=== PATIENT | female | born 1995 | race Caucasian/White ===

== ENCOUNTER 2024-02-15 18:38 | Inpatient (IN) | payer OTHER, SELFPAY ==
--- NOTE | 2024-02-15 | ECG_ITS ---
Test Reason : SOB Blood Pressure : / mmHG Vent. Rate : 106 BPM Atrial Rate : 106 BPM P-R Int : 122 ms QRS Dur : 074 ms QT Int : 310 ms P-R-T Axes : 058 030 021 degrees QTc Int : 411 ms Sinus tachycardia Otherwise normal ECG No previous ECGs available Referred By: Generic ED Physician Electronically Signed By:EDEN HAN
--- NOTE | ~2024-02-15 | XR_ITS ---
EXAMINATION: XR CHEST CLINICAL INFORMATION: Shortness of breath, chest pain COMPARISON: None available. TECHNIQUE: 2 views of the chest were obtained. FINDINGS: No significant abnormality is noted involving the heart, lungs, mediastinum, bony thorax or soft tissues. XR/XR chest 2V IMPRESSION: Unremarkable examination. Electronically signed by: Sadi Saldaña DO 02/15/2024 09:25 PM EDT RP
--- NOTE | ~2024-02-15 | CT_ITS ---
EXAMINATION: CT HEAD WITHOUT CONTRAST CLINICAL INFORMATION: Persistent headache COMPARISON: None available. TECHNIQUE: Contiguous axial imaging was performed from the skull base to vertex without intravenous administration of contrast. This CT examination was performed using dose optimization techniques as appropriate, variously including the following: *Automated exposure control *Adjustment of mA and/or kV according to patient size (this includes techniques or standardized protocols for targeted exams where dose is matched to indication/reason for exam; i.e. extremities or head) *Use of iterative reconstruction technique DLP: 635 mGy-cm FINDINGS: There is no evidence of acute intracranial hemorrhage or edematous large vessel territorial infarction. No abnormal mass effect or midline shift is seen. Shin to white matter differentiation is well preserved. No abnormal extra-axial fluid collections are identified. The ventricles are normal in size. No abnormal attenuation in the brain parenchyma. No acute calvarial fracture.. Mucosal thickening of bilateral maxillary, ethmoid, left sphenoid sinus. Mastoid air cells are well-aerated. CT/CT head/brain wo IV con IMPRESSION: No CT evidence of acute intracranial hemorrhage or edematous territorial infarction. Consider further evaluation with MRI if there is clinical concern for an occult process. Bilateral maxillary, ethmoid and left sphenoid sinus disease. Electronically signed by: Marv Adhikari MD 02/18/2024 04:20 PM EDT
[2024-02-15 19:31] VITALS: BP 126/75; PULSE 113; RESP 24; TEMP 37.2; O2SAT 93; BMI 36.7
[2024-02-15 20:40] LABS: Hematocrit 44.3 % (37.0-47.0); Hemoglobin 14.8 g/dl (12.0-16.0); Mean Corpuscular HGB Conc 33.4 g/dl (31.0-35.0); Mean Corpuscular Hemoglobin 28.5 pg (27.0-33.0); Mean Corpuscular Volume 85.4 fL (80.0-98.0); Mean Platelet Volume 9.7 fL (9.4-12.3); Platelet Count 276 X10*3/uL (160-400); Red Blood Count 5.19 X10*6/uL (4.20-5.50); Red Cell Distribution Width 14.4 % (11.0-16.0); White Blood Count 13.8 X10*3/uL (4.8-10.8)
[2024-02-15 20:49] LABS: D Dimer High Sensitivity 336 NG/ML
[2024-02-15 21:00] LABS: Influenza A PCR NEGATIVE (Negative); Influenza B PCR NEGATIVE (Negative); Resp Syncy Virus RNA Qual PCR NEGATIVE (Negative); SARS COV2 PCR INHOUSE NEGATIVE (Negative)
--- NOTE | 2024-02-15 21:12 | ED.SOB ---
HPI - SOB/Dyspnea General Chief Complaint: Dyspnea Stated Complaint: CP and SOB 1xday, flu sym 3xdays hx asthma,murmur Time Seen by Provider: 02/15/24 21:07 Source: patient Mode of arrival: ambulatory Limitations: no limitations History of Present Illness ED Provider: eliazar JUDGE Narrative: Patient's history of asthma been sick for last 3 days with nasal congestion and dry cough no calf pain no recent travel feels tight in the lung on arrival patient was wheezing saturating 91% at room air no other family member sick no fever no chills Related Data Allergies Allergy/AdvReac Type Severity Reaction Status Date / Time propylene glycol Allergy Shortness Verified 02/15/24 19:38 of Breath Review of Systems Review of Systems: Yes all other systems are reviewed and are negative PMFSH Past Medical History Medical History Asthma Social History Social History Smoked in Last 30 Days: No Use of substances other than those prescribed or required for medical reasons: No Advance Directives: No Advance Directives Information Provided: No Do you have a plan to hurt others: No Plan Physical Exam Vital Signs: Vital Signs: Last Vital Signs Temp 99.6 F 02/16/24 00:38 Pulse 122 H 02/16/24 00:38 Resp 20 02/16/24 00:38 BP 127/74 02/16/24 00:38 Pulse Ox 92 02/16/24 00:38 O2 Del Method Room Air 02/16/24 00:38 BMI result Body Mass Index 36.7 Appearance: Alert. Oriented X3. No acute distress. Eyes: No pallor or icterus ENT: Pharynx normal. Oral Mucosa moist Neck: Normal inspection. Neck supple. CVS: Normal heart rate and rhythm. Pulses normal. Respiratory: No respiratory distress. Equal air entry bilateral, bilateral diffuse wheezing Abdomen: Soft and nontender. Bowel sounds are present, Skin: Skin warm and dry. Normal skin color. Normal skin turgor. Extremities: No lower extremity edema. No calf tenderness Neuro: Oriented X 3. No motor deficit. Medications Administered Discontinued Medications Generic Name Dose Route Start Last Admin Trade Name Freq PRN Reason Stop Dose Admin Albuterol Sulfate 5 mg 02/15/24 22:49 02/15/24 23:09 Albuterol Sulfate (0.083%) 2.5 Mg/3 Ml Vial.Neb INHALE 02/15/24 22:50 5 mg ONCE ONE Administration Albuterol Sulfate 5 mg/ 0 mg 02/15/24 21:13 02/15/24 21:20 Albuterol/Ipratropium 3 ml INHALE 02/15/24 21:14 7.5 each ONCE ONE Administration Dexamethasone Sodium Phosphate 10 mg 02/15/24 21:16 02/15/24 21:36 Dexamethasone Sod Phosphate 10 Mg/Ml Vial IVPUSH 02/15/24 21:17 10 mg ONCE ONE Administration Magnesium Sulfate 2 gm in 50 mls @ 150 mls/hr 02/15/24 21:16 02/15/24 22:42 Magnesium Sulfate/H2o IV 02/15/24 21:35 Infused ONCE ONE Infusion Medical Decision Making Medical Decision Making [facility] Narrative: Patient with history of asthma came with acute exacerbation with wheezing saturating 91% patient does not have any nebulizer at home patient has received 2 continues nebulizing treatment along with IV steroids and magnesium still unable to take deep breath and coughing saturating 91% will admit patient for further management Differential Diagnosis Differential Diagnoses: The differential diagnosis associated with the presentation includes Asthma/bronchitis/viral pneumonia/pneumothorax/pneumonia Admission/Observation Consideration of admission/observation: Escalation of care including admission/observation considered Consult Healthcare Provider Management of the patient was discussed with: Hospitalist Lab Data [facility] Lab Attestation statement: I reviewed the patient's lab results. 02/15/24 20:36 02/15/24 21:05 Labs: Lab Results 02/15/24 02/15/24 02/15/24 Range/Units 20:04 20:36 21:05 WBC 13.8 H (4.8-10.8) X10*3/uL RBC 5.19 (4.20-5.50) X10*6/uL Hgb 14.8 (12.0-16.0) g/dl Hct 44.3 (37.0-47.0) % MCV 85.4 (80.0-98.0) fL MCH 28.5 (27.0-33.0) pg MCHC 33.4 (31.0-35.0) g/dl RDW 14.4 (11.0-16.0) % Plt Count 276 (160-400) X10*3/uL MPV 9.7 (9.4-12.3) fL Absolute Nucleated RBC 0.000 (0.0-0.012) X10*3/uL Nucleated RBC % (auto) 0.0 (0.0-0.2) /100WBC D-Dimer High Sensitivty 336 NG/ML Sodium 140 (135-145) mmol/L Potassium 3.5 (3.3-5.1) mmol/L Chloride 107 (96-108) mmol/L Carbon Dioxide 24 (22-29) mmol/L Anion Gap 13 (12-20) BUN 9 (9-16) mg/dL Creatinine 0.73 (0.5-1.4) mg/dL Estim Creat Clear Calc 107.5 Estimated GFR > 60 Random Glucose 89 (60-115) mg/dL Calcium 9.3 (8.4-10.2) mg/dL Troponin I High Sens < 2.7 (<3.5-17.0) ng/L Beta HCG, Quant < 2 mIU/mL Influenza Type A (PCR) NEGATIVE (Negative) Influenza Type B (PCR) NEGATIVE (Negative) RSV RNA Qual (PCR) NEGATIVE (Negative) SARS-CoV-2 RNA (RT-PCR) NEGATIVE (Negative) Independent Interpretation I performed an independent interpretation of an: Plain X-Ray Interpretation: neg Radiology Impression Discussion of test interpretation with radiology: I have reviewed the radiologist's reading. Critical Care Time Critical Care Time Critical Care Time: Yes Total Critical Care Time: 50 Attestation: The patient was critically ill with a high probability of imminent or life threatening deterioration. I spent greater than 60???minutes of discontinuous time evaluating the patient,delivering critical care at the bedside, discussing and evaluating pertinent data with consultants. Critical care time does not include time spent performing separately billable procedures or teaching. Total time spent performing critical care was 50???minutes. Discharge Plan Discharge Clinical Impression: Asthma with exacerbation Patient Disposition: Admitted As Inpatient
[2024-02-15] MEDS: Albuterol Sulfate 5 MG, Albuterol/Iprat 2.5/0.5MG 3 ML 3 ML INHALE (21:20)
[2024-02-15 21:21] VITALS: PULSE 126; RESP 20; O2SAT 91
[2024-02-15 21:24] LABS: Anion Gap 13 (12-20); Blood Urea Nitrogen 9 mg/dL (9-16); Calcium 9.3 mg/dL (8.4-10.2); Carbon Dioxide 24 mmol/L (22-29); Chloride 107 mmol/L (96-108); Creatinine Clr Calc Pharmacy 107.5; Estimated Glomerular Filt Rate > 60; Glucose Random 89 mg/dL (60-115); Potassium 3.5 mmol/L (3.3-5.1); Sodium 140 mmol/L (135-145)
[2024-02-15 21:34] LABS: Troponin-I High Sensitivity < 2.7 ng/L (<3.5-17.0)
[2024-02-15] MEDS: Magnesium Sulfate/H2O 2 GM/50 ML PIGGYBACK IV (21:35)
[2024-02-15] MEDS: dexAMETHasone sod phosphate 10 MG/ML VIAL IVPUSH (21:36)
[2024-02-15 23:07] VITALS: BP 112/64; PULSE 120; RESP 22; TEMP 37.3; O2SAT 91
[2024-02-15 23:09] VITALS: PULSE 123; RESP 20; O2SAT 92
[2024-02-15] MEDS: Albuterol Sulfate (0.083%) 2.5 MG/3 ML VIAL.NEB 5 MG INHALE (23:09)
[2024-02-16] VITALS (14 sets, daily range): BP systolic 118–152; BP diastolic 61–83; PULSE 72–122; RESP 14–24; TEMP 36.3–37.6; O2SAT 92–100; BMI 35.6
[2024-02-16 00:37] LABS: HCG Quantitative < 2 mIU/mL
--- NOTE | 2024-02-16 00:39 | PM.IMHP ---
History of Present Illness Date of Service: 02/16/24 Chief Complaint: Dyspnea This is a 28-year-old female with pertinent history of asthma not on home oxygen, eczema who presents to the emergency department for evaluation of dyspnea. Patient states his symptoms started 1 day prior to presentation. She has been having dyspnea which is worse with exertion. Also has been having wheezing which is not relieved with home inhaler. Has associated cough. She was last hospitalized for asthma as a kid. No history of intubation. No fever, chills, chest discomfort, palpitations, abdominal pain, changes in urinary or bowel habits. In the emergency department, patient with wheezing despite multiple DuoNeb treatments. IV magnesium and IV steroids given in the ER. Review of Systems Cardiovascular: Cardiovascular: Reports dyspnea on exertion Respiratory: Respiratory: Reports cough, Reports dyspnea on exertion and Reports wheezing Gastrointestinal: Gastrointestinal: Reports no additional gastrointestinal complaints Genitourinary: Genitourinary: Reports no additional female genitourinary complaints Allergic/Immunologic: Allergic/Immunologic: Reports wheezing [facility] Medical History Asthma Pertinent family history: No family history of early CAD Social History Smoked in Last 30 Days: No Use of substances other than those prescribed or required for medical reasons: No Advance Directives: No Advance Directives Information Provided: No Do you have a plan to hurt others: No Plan Meds Allergies Allergy/AdvReac Type Severity Reaction Status Date / Time propylene glycol Allergy Shortness Verified 02/15/24 19:38 of Breath Physical Exam Vital Signs and Narrative: Vital Signs: Last Vital Signs Temp 99.1 F 02/15/24 23:07 Pulse 123 H 02/15/24 23:09 Resp 20 02/15/24 23:09 BP 112/64 02/15/24 23:07 Pulse Ox 91 L 02/15/24 23:07 O2 Del Method Room Air 02/15/24 23:07 BMI result Body Mass Index 36.7 Young female lying in bed in no distress Neck supple, no JVD Tachycardic with regular rhythm, S1-S2 heard Bilateral wheezing without crackles Abdomen soft nontender, no guarding, no rigidity Patient is awake, alert and oriented to self, place, time and person ; no focal motor deficit Psych: Normal mood No pedal edema Results Labs 02/15/24 20:36 02/15/24 21:05 Labs: Laboratory Results - last 24 hr 02/15/24 02/15/24 02/15/24 20:04 20:36 21:05 MCV 85.4 MCH 28.5 MCHC 33.4 RDW 14.4 Plt Count 276 MPV 9.7 Absolute Nucleated RBC 0.000 Nucleated RBC % (auto) 0.0 D-Dimer High Sensitivty 336 Anion Gap 13 Estim Creat Clear Calc 107.5 Estimated GFR > 60 Random Glucose 89 Calcium 9.3 Troponin I High Sens < 2.7 Beta HCG, Quant < 2 Influenza Type A (PCR) NEGATIVE Influenza Type B (PCR) NEGATIVE RSV RNA Qual (PCR) NEGATIVE SARS-CoV-2 RNA (RT-PCR) NEGATIVE Imaging Radiologist's Impressions: Impressions Chest X-Ray 02/15/24 20:15 IMPRESSION: Unremarkable examination. Electronically signed by: Sadi Saldaña DO 02/15/2024 09:25 PM EDT RP Assessment and Plan (1) Asthma exacerbation: Status: Acute Plan This is a 28-year-old female with pertinent history of asthma not on home oxygen who presents to the emergency department for evaluation of dyspnea. #. Acute respiratory distress due to acute exacerbation of asthma: Will admit patient with scheduled and p.r.n. DuoNebs. Initiating systemic steroids. Continue home inhaler Med rec pending DVT prophylaxis: None. Low risk and patient is ambulatory Full code Quality Stroke Does the patient have a stroke diagnosis?: No VTE Prior VTE?: No VTE Risk Level:: Medical - moderate - high VTE Device Contraindication: Treatment Not Indicated VTE Drug Contraindication: N/A - Med Ordered
--- NOTE | 2024-02-16 04:36 | PC.NURSE ---
pt placed on 2L nasal cannula d/t O2 dropping to 88% room air
[2024-02-16 05:12] LABS: Basophils Percent Auto 0.1 % (0-2); Hematocrit 41.5 % (37.0-47.0); Hemoglobin 13.7 g/dl (12.0-16.0); Imm Gran Abs Auto 0.03 X10*3/uL (0.00-0.03); Imm Gran Pct Auto 0.3 % (0.0-0.4); Lymphocytes Absolute Auto 0.6 X10*3/uL (1.2-4.9); Lymphocytes Percent Auto 6.3 % (20-40); MANUAL DIFF FLAG SCAN; Mean Corpuscular Hemoglobin 28.1 pg (27.0-33.0); Mean Platelet Volume 9.9 fL (9.4-12.3); Monocytes Absolute Auto 0.1 X10*3/uL (0.1-1.2); Monocytes Percent Auto 0.8 % (2-11); Neutrophils Absolute Auto 8.6 x10*3/uL (2.0-8.3); Neutrophils Percent Auto 92.5 % (45-73); Platelet Count 302 X10*3/uL (160-400); Red Blood Count 4.88 X10*6/uL (4.20-5.50); Red Cell Distribution Width 14.3 % (11.0-16.0); SCAN SMEAR FLAG 1; White Blood Count 9.3 X10*3/uL (4.8-10.8)
[2024-02-16 05:27] LABS: Anion Gap 17 (12-20); Blood Urea Nitrogen 9 mg/dL (9-16); Calcium 9.3 mg/dL (8.4-10.2); Carbon Dioxide 20 mmol/L (22-29); Chloride 106 mmol/L (96-108); Creatinine Clr Calc Pharmacy 107.5; Estimated Glomerular Filt Rate > 60; Glucose Random 157 mg/dL (60-115); Sodium 139 mmol/L (135-145)
[2024-02-16 05:34] LABS: SLIDE REVIEW VERIFIED
[2024-02-16] MEDS: Albuterol/Iprat 2.5/0.5MG 3 ML AMPUL.NEB INHALE ×5 (07:45→22:45)
[2024-02-16] MEDS: predniSONE 20 MG TABLET 40 MG PO (09:17)
[2024-02-16] MEDS: 0.9 % Sodium Chloride Flush 3 ML SYRINGE IVFLUSH ×2 (09:18→16:31)
--- NOTE | 2024-02-16 09:55 | PHA.MEDREC ---
Addendum entered by Fide Terrell RPh 02/16/24 10:08: Reviewed by Sheila Original Note: Pharmacy Consult ? Medication Reconciliation Pharmacy has completed the medication reconciliation. Confirmed medications with patient. Patient states she only takes an Albuterol Inhaler 2 puffs every 4 hours as needed and a Dupixent Pen 300mg injected every 2 weeks and she states she does it every other Thursday confirmed she took it this past Tuesday 02/13. She states she is not on anything else and she confirmed she fills her scripts at [facility] on [facility] in [place].
--- NOTE | 2024-02-16 11:50 | ECG_ITS ---
Test Reason : cp Blood Pressure : / mmHG Vent. Rate : 078 BPM Atrial Rate : 078 BPM P-R Int : 126 ms QRS Dur : 072 ms QT Int : 356 ms P-R-T Axes : 042 014 -01 degrees QTc Int : 405 ms Normal sinus rhythm with sinus arrhythmia Normal ECG When compared with ECG of 15-FEB-2024 19:44, Heart rate has decreased Referred By: Chaitanya Humphries Electronically Signed By:EDEN HAN
--- NOTE | 2024-02-16 11:50 | PC.NURSE ---
Pt continues to endorse chest discomfort, MD Franco made aware. Repeat EKG ordered.
--- NOTE | 2024-02-16 12:35 | MHC.CM.PN ---
PT LIVES WITH S/O HAS OWN RIDE TANESHAROSSI IS INDEPENDENT DC PLAN HOME NO SERV IES
--- NOTE | 2024-02-16 13:07 | PM.EVENT ---
Documented by User: Anju Gardiner PA-C 02/16/24 13:09 Event Note Date of Service: 02/16/24 Event Note: pt c/o CP with inspiration worse with cough unable to speak without coughing. EKG normal orders for robatussin with codiene and ibuprofen added Time Spent With Patient Time: Total time managing care of this patient today 5 minutes. Documented by User: Chaitanya Franco MD 02/16/24 15:51 Event Note Date of Service: 02/16/24
--- NOTE | 2024-02-16 14:14 | PC.NURSE ---
Respiratory called and reminded about pt's scheduled neb treatments, reported they will be down shortly.
[2024-02-16 15:32] LABS: ABG Base Excess 0.3 mmol/L; ABG HCO3 23 mmol/L (22-26); ABG pCO2 31 mmHg (32-45); ABG pH 7.47 (7.35-7.45); ABG pO2 76 mmHg (83-108)
--- NOTE | 2024-02-16 15:51 | PM.EVENT ---
Event Note Date of Service: 02/16/24 Event Note: pt seen/examine with PA. appear anxious, O2 sat normal on room air. Has bilateral wheezes, no accessory muscle use. ABG c/w hyperventilation. Change steroid to IV, continue breahing treatement. Ativan for anxiety. Weight loss advised Time Spent With Patient Time: Total time managing care of this patient today ____ minutes.
[2024-02-16] MEDS: methylPREDNISolone Sod Succ 40 MG/ML VIAL IVPUSH ×2 (16:31→23:52)
--- NOTE | 2024-02-16 17:36 | PC.NURSE ---
Pt has $1,214 dollars with her in [place]. Pt counted with this RN.
[2024-02-16] MEDS: LORazepam 2 MG/ML VIAL 0.5 MG IVPUSH (19:32)
[2024-02-16 20:13] LABS: ABG Refer to POC result
[2024-02-16] MEDS: guaiFEN/Codeine SF 200/20/10ML 10 ML LIQUID PO (23:52)
[2024-02-16] MEDS: Ibuprofen 600 MG TABLET PO (23:52)
[2024-02-17] VITALS (13 sets, daily range): BP systolic 110–130; BP diastolic 58–85; PULSE 95–142; RESP 17–20; TEMP 36.3–37.1; O2SAT 94–98
--- NOTE | 2024-02-17 | ECG_ITS ---
Test Reason : Tachycardia Blood Pressure : / mmHG Vent. Rate : 137 BPM Atrial Rate : 137 BPM P-R Int : 116 ms QRS Dur : 072 ms QT Int : 290 ms P-R-T Axes : 056 014 -04 degrees QTc Int : 437 ms Sinus tachycardia Cannot rule out Anterior infarct , age undetermined Abnormal ECG When compared with ECG of 16-FEB-2024 12:06, Vent. rate has increased BY 59 BPM Minimal criteria for Anterior infarct are now Present Nonspecific T wave abnormality now evident in Anterior leads Referred By: Kareem Oden Electronically Signed By:EDEN HAN
[2024-02-17] MEDS: 0.9 % Sodium Chloride Flush 3 ML SYRINGE IVFLUSH ×4 (00:32→19:44)
[2024-02-17] MEDS: LORazepam 2 MG/ML VIAL 0.5 MG IVPUSH ×2 (01:21→07:42)
[2024-02-17] MEDS: levalbuterol HCL 1.25 MG/3 ML VIAL.NEB INHALE ×2 (01:49→20:15)
[2024-02-17] MEDS: Magnesium Sulfate/H2O 2 GM/50 ML PIGGYBACK IV ×2 (02:01→19:51)
[2024-02-17] MEDS: methylPREDNISolone Sod Succ 40 MG/ML VIAL IVPUSH (07:42)
[2024-02-17] MEDS: Albuterol/Iprat 2.5/0.5MG 3 ML AMPUL.NEB INHALE ×4 (08:27→18:51)
[2024-02-17 09:10] LABS: Hematocrit 38.1 % (37.0-47.0); Hemoglobin 12.7 g/dl (12.0-16.0); Mean Corpuscular HGB Conc 33.3 g/dl (31.0-35.0); Mean Corpuscular Hemoglobin 28.2 pg (27.0-33.0); Mean Corpuscular Volume 84.7 fL (80.0-98.0); Platelet Count 319 X10*3/uL (160-400); Red Cell Distribution Width 14.7 % (11.0-16.0); White Blood Count 16.9 X10*3/uL (4.8-10.8)
[2024-02-17 09:36] LABS: Anion Gap 13 (12-20); Blood Urea Nitrogen 14 mg/dL (9-16); Calcium 8.7 mg/dL (8.4-10.2); Carbon Dioxide 23 mmol/L (22-29); Chloride 108 mmol/L (96-108); Creatinine Clr Calc Pharmacy 104.3; Estimated Glomerular Filt Rate > 60; Glucose Random 163 mg/dL (60-115); Potassium 3.9 mmol/L (3.3-5.1); Sodium 140 mmol/L (135-145)
--- NOTE | 2024-02-17 12:03 | MHC.CM.PN ---
Per MD rounds patient may be ready to discharge today. DP Home self care. Patient will arrange for transport home.
--- NOTE | 2024-02-17 12:18 | HO.PM.IMPN ---
Subjective Subjective Date of Service: 02/17/24 Interval History: Being followed for acute asthma exacerbation Complaining of persistent shortness of breath,dry cough and allergy symptoms Denies fever, no chills, no nausea, no vomiting or abdominal pain, oxygenation stable on 2 L Review of Systems All other system reviewed and are negative Physical Exam Vital Signs: Vital Signs: Last Vital Signs Temp 98.3 F 02/17/24 11:30 Pulse 95 02/17/24 11:47 Resp 18 02/17/24 11:47 BP 123/72 02/17/24 11:30 Pulse Ox 96 02/17/24 11:30 O2 Del Method Nasal Cannula 02/17/24 11:30 O2 Flow Rate 2 02/17/24 11:30 BMI result Body Mass Index 35.6 Const: Other: General in no acute distress. Neck no JVD. CVS regular rate rhythm, Respiratory lungs bilateral expiratory wheeze Gastrointestinal abdomen soft, non tender, bowel sounds audible Extremities no edema. Neuro non focal Skin no rash Appropriate affect Objective Data Active Medications Acetaminophen (Acetaminophen 325 Mg Tablet) 650 mg PO Q6H PRN PRN Reason: Pain, Mild (Pain Scale 1-3), fever or headache Albuterol/Ipratropium (Albuterol/Iprat 2.5/0.5mg 3 Ml Ampul.Neb) 3 ml INHALE RQ4H WHILE AWAKE [facility] Last Admin: 02/17/24 11:47 Dose: 3 ml Documented By: CAPRI Albuterol/Ipratropium (Albuterol/Iprat 2.5/0.5mg 3 Ml Ampul.Neb) 3 ml INHALE Q4H PRN PRN Reason: Wheezing Last Admin: 02/16/24 22:45 Dose: 3 ml Documented By: DAVID Calcium Carbonate (Calcium Carbonate 750 Mg Tab.Chew) 750 mg PO Q4H PRN PRN Reason: Heartburn Guaifenesin/Codeine Phosphate (Guaifen/Codeine Sf 200/20/10ml 10 Ml Liquid) 10 ml PO Q6H PRN PRN Reason: Cough Last Admin: 02/16/24 23:52 Dose: 10 ml Documented By: GONZALO Guaifenesin/Dextromethorphan (Guaifenesin Dm 200/20/10 Ml 10 Ml Syrup) 10 ml PO TID [facility] Ibuprofen (Ibuprofen 600 Mg Tablet) 600 mg PO Q6H PRN PRN Reason: Pain, Moderate(Pain Scale 4-6) Last Admin: 02/16/24 23:52 Dose: 600 mg Documented By: GONZALO Loratadine (Loratadine 10 Mg Tablet) 10 mg PO DAILY [facility] Lorazepam (Lorazepam 2 Mg/Ml Vial) 0.5 mg IVPUSH Q8H PRN PRN Reason: Anxiety Magnesium Hydroxide (Milk Of Magnesia 30 Ml Oral.Susp) 30 ml PO DAILY PRN PRN Reason: Constipation Melatonin (Melatonin 3 Mg Tablet) 6 mg PO BEDTIME PRN PRN Reason: Insomnia Methylprednisolone Sodium Succinate (Methylprednisolone Sod Succ 40 Mg/Ml Vial) 40 mg IVPUSH Q8H [facility] Last Admin: 02/17/24 07:42 Dose: 40 mg Documented By: KARLY Montelukast Sodium (Montelukast Sodium 10 Mg Tablet) 10 mg PO ONCE ONE Stop: 02/17/24 12:16 Ondansetron HCl (Ondansetron Hcl 4 Mg/2 Ml Vial) 4 mg IVPUSH Q8H PRN PRN Reason: Nausea and Vomiting Sodium Chloride (0.9 % Sodium Chloride Flush 3 Ml Syringe) 3 ml IVFLUSH QSHIFT [facility] Last Admin: 02/17/24 07:43 Dose: 3 ml Documented By: KARLY Labs 02/17/24 08:32 02/17/24 08:32 Labs: Laboratory Results - last 24 hr 02/16/24 02/17/24 15:21 08:32 MCV 84.7 MCH 28.2 MCHC 33.3 RDW 14.7 Plt Count 319 MPV 10.0 Absolute Nucleated RBC 0.000 Nucleated RBC % (auto) 0.0 O2 Saturation 95.0 ABG pH at Pt Temp 7.47 H ABG pCO2 at Pt Temp 31 L ABG pO2 at Pt Temp 76 L ABG HCO3 23 ABG Base Excess (Actual) 0.3 Anion Gap 13 Estim Creat Clear Calc 104.3 Estimated GFR > 60 Random Glucose 163 H Calcium 8.7 D Assessment and Plan (1) Asthma with exacerbation: Status: Acute Plan 28-year-old female with pertinent history of asthma not on home oxygen who presents to the emergency department for evaluation of dyspnea. #. Acute respiratory distress due to acute exacerbation of asthma: Persistent shortness of breath dry cough, chest x-ray unremarkable Continue IV steroids increased to 60mg Q 8 hours, continue scheduled and p.r.n. DuoNebs. Add scheduled cough medication, Claritin and Singulair. # history of allergies on dupilumab Q 14 days subQ/cont. outpt. Follow-up with post doctoral researcher. # class 2 obesity recommend low-calorie diet DVT prophylaxis: Low risk and patient is ambulatory Full code In my clinical judgment patient requires continued inpatient hospitalization for management of acute asthma exacerbation requiring IV steroids and scheduled DuoNeb and close respiratory monitoring Quality Stroke Does the patient have a stroke diagnosis?: No VTE Prior VTE?: No VTE Risk Level:: Medical - moderate - high VTE Device Contraindication: Treatment Not Indicated VTE Drug Contraindication: N/A - Med Ordered
--- NOTE | 2024-02-17 13:05 | MHC.CM.PN ---
Per no dc today. Patient requires IV steroids for Asthma exacerbation as well as respiratory monitoring. DP Home no services patient will arrange transport.
[2024-02-17] MEDS: Loratadine 10 MG TABLET PO (13:15)
[2024-02-17] MEDS: Montelukast Sodium 10 MG TABLET PO (13:15)
[2024-02-17] MEDS: methylPREDNISolone Sod Succ 40 MG/ML VIAL 60 MG IVPUSH ×2 (14:38→19:45)
[2024-02-17] MEDS: guaiFENesin DM 200/20/10 ML 10 ML SYRUP PO ×2 (15:06→19:48)
[2024-02-17] MEDS: 0.9 % Sodium Chloride 1,000 ML 999 ML IV (19:44)
[2024-02-17] MEDS: ondansetron HCL 4 MG/2 ML VIAL IVPUSH (21:11)
[2024-02-17 22:15] LABS: Alanine Aminotransferase 11 U/L (0-31); Albumin Level 3.9 g/dL (3.5-5.0); Alkaline Phosphatase 55 U/L (39-117); Aspartate Amino Transferase 14 U/L (5-31); Bilirubin Direct 0.1 mg/dL (0.0-0.5); Bilirubin Total 0.3 mg/dL (0.0-1.0)
[2024-02-18] VITALS (11 sets, daily range): BP systolic 121–133; BP diastolic 62–79; PULSE 63–128; RESP 16–22; TEMP 36.4–36.9; O2SAT 96–99
--- NOTE | 2024-02-18 04:27 | PC.NURSE ---
This RN was alerted at the beginning of her shift by the [employer] that pt's HR was in the 150's. This RN in to assess pt; alerted MD. See new orders from MD. Pt vomited, zofran administered. Pt insisting she was told she would received a ct scan when she was in the ED. MD aware pt would like a ct scan. Pt placed on tele. She went from sinus tach to sinus rhythm, HR has been in the 80's. Pt was on 2L O2, she requested to remove it, educated pt about O2 use and she may need to have it placed on her again if needed; pt agreeable. She is independent in the room, able to make her needs known. Call thompson within reach.
[2024-02-18] MEDS: methylPREDNISolone Sod Succ 40 MG/ML VIAL 60 MG IVPUSH ×3 (05:16→19:53)
[2024-02-18] MEDS: Albuterol/Iprat 2.5/0.5MG 3 ML AMPUL.NEB INHALE ×4 (07:27→20:14)
[2024-02-18] MEDS: Ibuprofen 600 MG TABLET PO ×3 (10:46→19:53)
[2024-02-18] MEDS: Benzonatate 100 MG CAPSULE PO (10:48)
[2024-02-18] MEDS: Doxycycline Hyclate 100 MG in 0.9 % Sodium Chloride 250 ML 166.67 MG IV ×2 (10:59→20:01)
[2024-02-18] MEDS: 0.9 % Sodium Chloride Flush 3 ML SYRINGE IVFLUSH ×2 (11:06→19:56)
[2024-02-18] MEDS: Loratadine 10 MG TABLET PO (11:06)
--- NOTE | 2024-02-18 11:49 | HO.PM.IMPN ---
Subjective Subjective Date of Service: 02/18/24 Interval History: Being followed for acute asthma exacerbation. Complaining of Persistent shortness of breath and dry cough, complaining of chest wall pain with coughing and breathing, denies fever chills, tolerating diet, stable oxygenation. Review of Systems All other system reviewed and are negative. Physical Exam Vital Signs: Vital Signs: Last Vital Signs Temp 98.5 F 02/18/24 11:30 Pulse 63 02/18/24 11:30 Resp 22 H 02/18/24 11:30 BP 133/69 02/18/24 11:30 Pulse Ox 99 02/18/24 11:30 O2 Del Method Room Air 02/18/24 11:30 O2 Flow Rate 2 02/17/24 19:03 BMI result Body Mass Index 35.6 Const: Other: General in no acute distress. Neck no JVD. CVS regular rate rhythm, Respiratory lungs bilateral diffuse expiratory wheeze Gastrointestinal abdomen soft, non tender, bowel sounds audible Extremities no edema. Neuro non focal Skin no rash Appropriate affect Objective Data Active Medications Acetaminophen (Acetaminophen 325 Mg Tablet) 650 mg PO Q6H PRN PRN Reason: Pain, Mild (Pain Scale 1-3), fever or headache Albuterol/Ipratropium (Albuterol/Iprat 2.5/0.5mg 3 Ml Ampul.Neb) 3 ml INHALE RQ4H WHILE AWAKE [facility] Last Admin: 02/18/24 11:24 Dose: 3 ml Documented By: MELISSA Albuterol/Ipratropium (Albuterol/Iprat 2.5/0.5mg 3 Ml Ampul.Neb) 3 ml INHALE Q4H PRN PRN Reason: Wheezing Last Admin: 02/16/24 22:45 Dose: 3 ml Documented By: DAVID Benzonatate (Benzonatate 100 Mg Capsule) 100 mg PO TID PRN PRN Reason: Cough Last Admin: 02/18/24 10:48 Dose: 100 mg Documented By: BRUCE Calcium Carbonate (Calcium Carbonate 750 Mg Tab.Chew) 750 mg PO Q4H PRN PRN Reason: Heartburn Doxycycline Hyclate 100 mg/ (Sodium Chloride) 250 mls @ 166.67 mls/hr IV Q12H [facility] Last Admin: 02/18/24 10:59 Dose: 166.67 mls/hr Documented By: BRUCE Ibuprofen (Ibuprofen 600 Mg Tablet) 600 mg PO Q6H PRN PRN Reason: Pain, Moderate(Pain Scale 4-6) Last Admin: 02/18/24 10:46 Dose: 600 mg Documented By: BRUCE Loratadine (Loratadine 10 Mg Tablet) 10 mg PO DAILY [facility] Last Admin: 02/18/24 11:06 Dose: 10 mg Documented By: BRUCE Lorazepam (Lorazepam 2 Mg/Ml Vial) 0.5 mg IVPUSH Q8H PRN PRN Reason: Anxiety Magnesium Hydroxide (Milk Of Magnesia 30 Ml Oral.Susp) 30 ml PO DAILY PRN PRN Reason: Constipation Melatonin (Melatonin 3 Mg Tablet) 6 mg PO BEDTIME PRN PRN Reason: Insomnia Methylprednisolone Sodium Succinate (Methylprednisolone Sod Succ 40 Mg/Ml Vial) 60 mg IVPUSH Q8H [facility] Last Admin: 02/18/24 05:16 Dose: 60 mg Documented By: KRISTIN Ondansetron HCl (Ondansetron Hcl 4 Mg/2 Ml Vial) 4 mg IVPUSH Q8H PRN PRN Reason: Nausea and Vomiting Last Admin: 02/17/24 21:11 Dose: 4 mg Documented By: KRISTIN Sodium Chloride (0.9 % Sodium Chloride Flush 3 Ml Syringe) 3 ml IVFLUSH QSHIFT [facility] Last Admin: 02/18/24 11:06 Dose: 3 ml Documented By: BRUCE Labs 02/17/24 08:32 02/17/24 08:32 Labs: Laboratory Results - last 24 hr 02/17/24 08:32 Total Bilirubin 0.3 Direct Bilirubin 0.1 AST 14 ALT 11 Alkaline Phosphatase 55 Total Protein 7.0 Albumin 3.9 Assessment and Plan (1) Asthma with exacerbation: Status: Acute Plan 28-year-old female with pertinent history of asthma not on home oxygen who presents to the emergency department for evaluation of dyspnea. #. Acute respiratory distress due to acute exacerbation of asthma: Persistent shortness of breath, dry cough, chest x-ray unremarkable Continue IV steroids 60mg Q 8 hours, continue scheduled and p.r.n. DuoNebs. IV doxy day 1 Status post IV magnesium last night Continue cough medication, Claritin and Singulair. Check respiratory viral panel Due to persistent symptoms pulmonary consult obtained Dr. Traore recommend to continue current medication/obtain toxicology screen/Breo upon discharge Continue Ativan for anxiety Leukocytosis due to steroids # history of allergies on dupilumab Q 14 days subQ/cont. outpt. 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 # class 2 obesity recommend low-calorie diet DVT prophylaxis: Low risk and patient is ambulatory Full code In my clinical judgment patient requires continued inpatient hospitalization for management of acute asthma exacerbation requiring IV steroids and scheduled DuoNeb and close respiratory monitoring Quality Stroke Does the patient have a stroke diagnosis?: No VTE Prior VTE?: No VTE Risk Level:: Medical - moderate - high VTE Device Contraindication: Treatment Not Indicated VTE Drug Contraindication: N/A - Med Ordered
--- NOTE | 2024-02-18 12:59 | PM.CNPUL ---
History of Present Illness History of Present Illness Consult date: 02/18/24 Chief complaint: Asthma exacerbation Narrative: 28-year-old lady, does not smoked tobacco, but does smoke marijuana with underlying history of asthma with significant allergic component since childhood, treated with Dupixent by [facility] and also followed by [facility] pulmonary, not on inhaled corticosteroids admitted on 02/16/2024 with an asthma exacerbation, improving slowly. Review of Systems Constitutional: Constitutional: Denies daytime sleepiness, Denies excessive sweating, Denies fatigue, Denies fever(s), Denies lethargy, Denies malaise, Denies night sweats, Denies snoring and Denies weight loss Eyes: Eyes: Denies blurry vision and Denies itchy eyes ENT: Denies nasal congestion, Denies post nasal drip, Denies sinus pain, Denies sinus pressure and Denies other ( Thrush) Cardiovascular: Cardiovascular: Denies chest pain, Denies pedal edema, Reports dyspnea, Denies orthopnea and Denies paroxysmal nocturnal dyspnea Respiratory: Respiratory: Denies cough, Denies hemoptysis, Denies excessive phlegm production, Reports dyspnea, Denies snoring and Reports wheezing Gastrointestinal: Gastrointestinal: Denies abdominal pain and Denies heartburn Musculoskeletal: Musculoskeletal: Denies myalgias, Denies arthralgias and Denies joint swelling Integumentary/Breasts: Skin/Breast: Denies rash Neurologic: Denies memory loss and Denies seizure-like activity Psychiatric: Psychiatric: Denies abnormal sleep pattern, Denies anxiety and Denies memory loss Endocrine: Endocrine: Denies excessive sweating, Denies fatigue and Denies heat intolerance Hematologic/Lymphatic: Hematologic/Lymphatic: Denies easy bruising Allergic/Immunologic: Allergic/Immunologic: Denies itchy eyes, Denies seasonal rhinorrhea and Reports wheezing PMFSH Past Medical History Medical History Asthma Social History Social History Household Members: Children and Friend(s) Housing: Condominium Do you presently have visiting nurse or other home services: No Patient Tobacco Use Status: Never used Tobacco Substance Use Type: Marijuana service: No Meds Allergies Allergy/AdvReac Type Severity Reaction Status Date / Time propylene glycol Allergy Severe Anaphylaxis Verified 02/16/24 13:19 Active Medications: Current Medications Acetaminophen (Acetaminophen 325 Mg Tablet) 650 mg PO Q6H PRN PRN Reason: Pain, Mild (Pain Scale 1-3), fever or headache Albuterol/Ipratropium (Albuterol/Iprat 2.5/0.5mg 3 Ml Ampul.Neb) 3 ml INHALE RQ4H WHILE AWAKE [facility] Last Admin: 02/18/24 11:24 Dose: 3 ml Albuterol/Ipratropium (Albuterol/Iprat 2.5/0.5mg 3 Ml Ampul.Neb) 3 ml INHALE Q4H PRN PRN Reason: Wheezing Last Admin: 02/16/24 22:45 Dose: 3 ml Benzonatate (Benzonatate 100 Mg Capsule) 100 mg PO TID PRN PRN Reason: Cough Last Admin: 02/18/24 10:48 Dose: 100 mg Calcium Carbonate (Calcium Carbonate 750 Mg Tab.Chew) 750 mg PO Q4H PRN PRN Reason: Heartburn Doxycycline Hyclate 100 mg/ (Sodium Chloride) 250 mls @ 166.67 mls/hr IV Q12H [facility] Last Admin: 02/18/24 10:59 Dose: 166.67 mls/hr Ibuprofen (Ibuprofen 600 Mg Tablet) 600 mg PO Q6H PRN PRN Reason: Pain, Moderate(Pain Scale 4-6) Last Admin: 02/18/24 10:46 Dose: 600 mg Lidocaine (Lidocaine 4 % Patch Adh..Patch) 1 patch TRANSDERMA DAILY [facility]; Protocol Loratadine (Loratadine 10 Mg Tablet) 10 mg PO DAILY [facility] Last Admin: 02/18/24 11:06 Dose: 10 mg Lorazepam (Lorazepam 2 Mg/Ml Vial) 0.5 mg IVPUSH Q8H PRN PRN Reason: Anxiety Magnesium Hydroxide (Milk Of Magnesia 30 Ml Oral.Susp) 30 ml PO DAILY PRN PRN Reason: Constipation Melatonin (Melatonin 3 Mg Tablet) 6 mg PO BEDTIME PRN PRN Reason: Insomnia Methylprednisolone Sodium Succinate (Methylprednisolone Sod Succ 40 Mg/Ml Vial) 60 mg IVPUSH Q8H [facility] Last Admin: 02/18/24 05:16 Dose: 60 mg Montelukast Sodium (Montelukast Sodium 10 Mg Tablet) 10 mg PO BEDTIME [facility] Ondansetron HCl (Ondansetron Hcl 4 Mg/2 Ml Vial) 4 mg IVPUSH Q8H PRN PRN Reason: Nausea and Vomiting Last Admin: 02/17/24 21:11 Dose: 4 mg Sodium Chloride (0.9 % Sodium Chloride Flush 3 Ml Syringe) 3 ml IVFLUSH QSHIFT [facility] Last Admin: 02/18/24 11:06 Dose: 3 ml Home Medications ?Medication ?Instructions ?Recorded ?Confirmed ?Last Taken ?Type albuterol sulfate 90 mcg/actuation 2 puff inhalation Q4H PRN 02/16/24 02/16/24 02/15/24 History aerosol inhaler (Ventolin HFA) Shortness Of Breath Or Wheezing dupilumab 300 mg/2 mL subcutaneous 300 mg subcut Q14D 02/16/24 02/16/24 02/14/24 History pen injector (Dupixent) Physical Exam Vital Signs: Vital Signs: Last Vital Signs Temp 98.5 F 02/18/24 11:30 Pulse 63 02/18/24 11:30 Resp 22 H 02/18/24 11:30 BP 133/69 02/18/24 11:30 Pulse Ox 99 02/18/24 11:30 O2 Del Method Room Air 02/18/24 11:30 O2 Flow Rate 2 02/17/24 19:03 BMI result Body Mass Index 35.6 Const: General: no acute distress and alert Nutritional Appearance: obese Orientation/consciousness: Other orientation findings ( oriented) HEENT: Head: Yes atraumatic Eyes: General: appearance normal, both eyes and all related structures Sclerae: sclerae normal EOM: EOMs intact bilaterally Neck: Neck: Yes supple Lymphatic: no lymphadenopathy noted Resp: Effort & Inspection: normal respiratory effort and no use of accessory muscles Auscultation: clear to auscultation bilaterally Cardio: Rate: regular rate Rhythm: regular rhythm Heart sounds: no gallops, no murmurs and no rubs Skin: General skin exam: other ( warm) Extrem: General: No clubbing, No cyanosis and No edema Results Laboratory Findings 02/17/24 08:32 02/17/24 08:32 Abnormal lab findings: Abnormal Labs 02/15/24 02/16/24 02/16/24 20:36 04:47 15:21 WBC 13.8 H Neut % (Auto) 92.5 H Lymph % (Auto) 6.3 L [place] % (Auto) 0.8 L Lymph # (Auto) 0.6 L Absolute Neuts (auto) 8.6 H ABG pH at Pt Temp 7.47 H ABG pCO2 at Pt Temp 31 L ABG pO2 at Pt Temp 76 L Carbon Dioxide 20 L Random Glucose 157 H 02/17/24 08:32 WBC 16.9 H Neut % (Auto) Lymph % (Auto) [place] % (Auto) Lymph # (Auto) Absolute Neuts (auto) ABG pH at Pt Temp ABG pCO2 at Pt Temp ABG pO2 at Pt Temp Carbon Dioxide Random Glucose 163 H Assessment and Plan (1) Asthma with exacerbation: Status: Acute Plan Impression: 28-year-old lady with underlying severe persistent allergic asthma and eczema on Dupixent, but no inhaled corticosteroids admitted with an asthma exacerbation, treated with empiric glucocorticoid steroids and nebulized bronchodilators, improving slowly. Recommendations: Agree with current treatment regimen including systemic glucocorticoids and nebulized bronchodilators. Consider discontinuation of empiric doxycycline. Will need to be discharged on Breo. Restart Dupixent on outpatient basis. Procedures Date of Service Date of Service: 02/18/24
[2024-02-18] MEDS: Lidocaine 4 % Patch ADH..PATCH 1 PATCH TRANSDERMA (15:30)
[2024-02-18 16:32] LABS: Amphetamine Screen Urine Not Detected (Not Detect); Barbiturates, Urine Not Detected (Not Detect); Benzodiazepines Screen Urine Not Detected (Not Detect); Buprenorphine Scr Not Detected (Not Detect); Cannabinoid Screen Urine POSITIVE (Not Detect); Cocaine Screen Urine Not Detected (Not Detect); Methadone Screen, Urine Not Detected (Not Detect); Opiate Screen Urine POSITIVE (Not Detect); Oxycodone Screen Urine Not Detected (Not Detect); Phencyclidine Screen Urine Not Detected (Not Detect)
[2024-02-18 16:56] LABS: Fentanyl, urine Not Detected (Not Detect)
[2024-02-18] MEDS: Montelukast Sodium 10 MG TABLET PO (19:55)
--- NOTE | 2024-02-18 21:48 | MHC.PIE ---
p; pt c/o pain 11/24 pleural, pain reproducible. tele shows s/t. d/t pt allergy , pt only wants motrin for pain. i; dr mora notified. ok to give ankit dose motrin e; will cont to monitor
[2024-02-18] MEDS: LORazepam 2 MG/ML VIAL 0.5 MG IVPUSH (23:37)
[2024-02-19] VITALS (10 sets, daily range): BP systolic 110–130; BP diastolic 58–85; PULSE 64–104; RESP 16–19; TEMP 36.3–37.2; O2SAT 92–99
[2024-02-19] MEDS: methylPREDNISolone Sod Succ 40 MG/ML VIAL 60 MG IVPUSH ×3 (05:58→20:13)
[2024-02-19] MEDS: Ibuprofen 600 MG TABLET PO ×2 (05:59→20:15)
[2024-02-19] MEDS: Doxycycline Hyclate 100 MG in 0.9 % Sodium Chloride 250 ML 166.67 MG IV (06:03)
[2024-02-19] MEDS: Albuterol/Iprat 2.5/0.5MG 3 ML AMPUL.NEB INHALE ×5 (07:40→23:38)
[2024-02-19] MEDS: Loratadine 10 MG TABLET PO (08:02)
[2024-02-19] MEDS: Lidocaine 4 % Patch ADH..PATCH 1 PATCH TRANSDERMA (08:02)
[2024-02-19] MEDS: 0.9 % Sodium Chloride Flush 3 ML SYRINGE IVFLUSH ×3 (08:03→20:13)
--- NOTE | 2024-02-19 11:19 | HO.PM.IMPN ---
Subjective Subjective Date of Service: 02/19/24 Interval History: Feeling warm lying underneath 3 blankets and using cold pack, no fevers refusing to remove blankets, complaining of persistent cough chest discomfort with coughing and shortness of breath, no fevers no chills oxygenation remained stable 95% on room air. Review of Systems All other system reviewed and are negative. Physical Exam Vital Signs: Vital Signs: Last Vital Signs Temp 98.4 F 02/19/24 07:48 Pulse 75 02/19/24 07:48 Resp 17 02/19/24 07:48 BP 110/58 L 02/19/24 07:48 Pulse Ox 95 02/19/24 07:48 O2 Del Method Room Air 02/19/24 07:48 O2 Flow Rate 2 02/17/24 19:03 BMI result Body Mass Index 35.6 Const: Other: General in no acute distress. Neck no JVD. CVS regular rate rhythm, Respiratory lungs bilateral expiratory wheeze , no respiratory distress Gastrointestinal abdomen soft, non tender, bowel sounds audible Extremities no edema. Neuro non focal Skin no rash Appropriate affect Objective Data Active Medications Acetaminophen (Acetaminophen 325 Mg Tablet) 650 mg PO Q6H PRN PRN Reason: Pain, Mild (Pain Scale 1-3), fever or headache Albuterol/Ipratropium (Albuterol/Iprat 2.5/0.5mg 3 Ml Ampul.Neb) 3 ml INHALE RQ4H WHILE AWAKE [facility] Last Admin: 02/19/24 07:40 Dose: 3 ml Documented By: LAURA Albuterol/Ipratropium (Albuterol/Iprat 2.5/0.5mg 3 Ml Ampul.Neb) 3 ml INHALE Q4H PRN PRN Reason: Wheezing Last Admin: 02/16/24 22:45 Dose: 3 ml Documented By: DAVID Benzonatate (Benzonatate 100 Mg Capsule) 100 mg PO TID PRN PRN Reason: Cough Last Admin: 02/18/24 10:48 Dose: 100 mg Documented By: BRUCE Calcium Carbonate (Calcium Carbonate 750 Mg Tab.Chew) 750 mg PO Q4H PRN PRN Reason: Heartburn Doxycycline Hyclate 100 mg/ (Sodium Chloride) 250 mls @ 166.67 mls/hr IV Q12H [facility] Last Infusion: 02/19/24 08:09 Dose: Infused Documented By: OBEY Ibuprofen (Ibuprofen 600 Mg Tablet) 600 mg PO Q6H PRN PRN Reason: Pain, Moderate(Pain Scale 4-6) Last Admin: 02/19/24 05:59 Dose: 600 mg Documented By: BARBY Lidocaine (Lidocaine 4 % Patch Adh..Patch) 1 patch TRANSDERMA DAILY [facility]; Protocol Last Admin: 02/19/24 08:02 Dose: 1 patch Documented By: OBEY Loratadine (Loratadine 10 Mg Tablet) 10 mg PO DAILY [facility] Last Admin: 02/19/24 08:02 Dose: 10 mg Documented By: OBEY Lorazepam (Lorazepam 2 Mg/Ml Vial) 0.5 mg IVPUSH Q8H PRN PRN Reason: Anxiety Last Admin: 02/18/24 23:37 Dose: 0.5 mg Documented By: BARBY Magnesium Hydroxide (Milk Of Magnesia 30 Ml Oral.Susp) 30 ml PO DAILY PRN PRN Reason: Constipation Melatonin (Melatonin 3 Mg Tablet) 6 mg PO BEDTIME PRN PRN Reason: Insomnia Methylprednisolone Sodium Succinate (Methylprednisolone Sod Succ 40 Mg/Ml Vial) 60 mg IVPUSH Q8H [facility] Last Admin: 02/19/24 05:58 Dose: 60 mg Documented By: BARBY Montelukast Sodium (Montelukast Sodium 10 Mg Tablet) 10 mg PO BEDTIME [facility] Last Admin: 02/18/24 19:55 Dose: 10 mg Documented By: BARBY Ondansetron HCl (Ondansetron Hcl 4 Mg/2 Ml Vial) 4 mg IVPUSH Q8H PRN PRN Reason: Nausea and Vomiting Last Admin: 02/17/24 21:11 Dose: 4 mg Documented By: KRISTIN Sodium Chloride (0.9 % Sodium Chloride Flush 3 Ml Syringe) [address] [facility] Last Admin: 02/19/24 08:03 Dose: 3 ml Documented By: OBEY Labs 02/17/24 08:32 02/17/24 08:32 Labs: Laboratory Results - last 24 hr 02/18/24 16:00 Urine Opiates Screen POSITIVE H Ur Buprenorphine Scrn Not Detected Ur Oxycodone Screen Not Detected Urine Methadone Screen Not Detected Urine Fentanyl Screen Not Detected Ur Barbiturates Screen Not Detected Ur Phencyclidine Scrn Not Detected Ur Amphetamines Screen Not Detected U Benzodiazepines Scrn Not Detected Urine Cocaine Screen Not Detected U Marijuana (THC) Screen POSITIVE H Assessment and Plan (1) Asthma with exacerbation: Status: Acute Plan 28-year-old female with pertinent history of asthma not on home oxygen who presents to the emergency department for evaluation of dyspnea. #. Acute exacerbation of mild stable asthma: Acute respiratory distress resolved Persistent shortness of breath, dry cough, chest x-ray unremarkable Continue IV steroids 60mg Q 8 hours, continue scheduled and p.r.n. DuoNebs and gradually wean. Status post IV magnesium Continue cough medication, Claritin and Singulair. 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 Traore recommend to continue current medication and DC IV doxycycline Continue Ativan for anxiety Leukocytosis due to steroids # history of allergies on dupilumab Q 14 days subQ/cont. outpt. 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 # class 2 obesity recommend low-calorie diet DVT prophylaxis: Low risk and patient is ambulatory Full code In my clinical judgment patient requires continued inpatient hospitalization for management of acute asthma exacerbation requiring IV steroids and scheduled DuoNeb and close respiratory monitoring Quality Stroke Does the patient have a stroke diagnosis?: No VTE Prior VTE?: No VTE Risk Level:: Medical - moderate - high VTE Device Contraindication: Treatment Not Indicated VTE Drug Contraindication: N/A - Med Ordered
[2024-02-19 11:38] LABS: Adenovirus PCR Not Detected (Not Detect.); Bordetella parapertussis PCR Not Detected (Not Detect.); Bordetella pertussis PCR Not Detected (Not Detect.); Chlamydia pneumoniae PCR Not Detected (Not Detect.); Coronavirus 229E PCR Not Detected (Not Detect.); Coronavirus HKU1 PCR Not Detected (Not Detect.); Coronavirus NL63 PCR Not Detected (Not Detect.); Coronavirus OC43 PCR Not Detected (Not Detect.); Human metapneumovirus PCR Not Detected (Not Detect.); Influenza A PCR Not Detected (Not Detect.); Influenza B PCR Not Detected (Not Detect.); Mycoplasma pneumoniae PCR Not Detected (Not Detect.); Parainfluenza 1 PCR Not Detected (Not Detect.); Parainfluenza 2 PCR Not Detected (Not Detect.); Parainfluenza 3 PCR Not Detected (Not Detect.); Parainfluenza 4 PCR Not Detected (Not Detect.); RSV PCR Not Detected (Not Detect.); Rhino/Enterovirus PCR Detected (Not Detect.)
[2024-02-19 12:34] LABS: SARS-CoV-2 PCR Not Detected (Not Detect.)
--- NOTE | 2024-02-19 15:22 | MHC.CM.PN ---
Per MD, patient not medically cleared for dc. CM will continue to follow.
[2024-02-19] MEDS: Montelukast Sodium 10 MG TABLET PO (20:13)
[2024-02-20 03:23] VITALS: BP 142/80; PULSE 69; RESP 14; TEMP 36.7; O2SAT 98
[2024-02-20] MEDS: methylPREDNISolone Sod Succ 40 MG/ML VIAL 60 MG IVPUSH (06:32)
[2024-02-20 07:35] VITALS: BP 162/80; PULSE 69; RESP 16; TEMP 36.3; O2SAT 98
[2024-02-20] MEDS: Albuterol/Iprat 2.5/0.5MG 3 ML AMPUL.NEB INHALE ×2 (08:12→15:08)
[2024-02-20] MEDS: Lidocaine 4 % Patch ADH..PATCH 1 PATCH TRANSDERMA (08:53)
[2024-02-20] MEDS: Loratadine 10 MG TABLET PO (08:53)
[2024-02-20] MEDS: 0.9 % Sodium Chloride Flush 3 ML SYRINGE IVFLUSH (08:54)
--- NOTE | 2024-02-20 13:51 | PM.DS ---
DS: Providers Provider Date of Service: 02/20/24 Date of admission: 02/19/24 13:49 Date of discharge: 02/20/24 Primary care physician: Unknown Physician Consults: 02/18/24 10:26 Consult to Pulmonology Routine Consulting Provider: [facility] [place] Pulmonology Services Reason for consultation: persistent asthma sxs Has provider been notified: No Attending physician on discharge: Chaitanya [facility] Discharging clinician: Beth Chris DS: Diagnosis Discharge Diagnosis (1) Asthma with exacerbation: Status: Acute DS: Summary Hospital Course Hospital Course: From H&P on the day of admission This is a 28-year-old female with pertinent history of asthma not on home oxygen, eczema who presents to the emergency department for evaluation of dyspnea. Patient states his symptoms started 1 day prior to presentation. She has been having dyspnea which is worse with exertion. Also has been having wheezing which is not relieved with home inhaler. Has associated cough. She was last hospitalized for asthma as a kid. No history of intubation. No fever, chills, chest discomfort, palpitations, abdominal pain, changes in urinary or bowel habits. In the emergency department, patient with wheezing despite multiple DuoNeb treatments. IV magnesium and IV steroids given in the ER. Acute exacerbation severe persistent allergic asthma due to entero/rhinovirus. Treated with aggressive breathing treatments, systemic steroids, breathing treatments. Chest x-ray negative for acute pneumonia. Seen by pulmonology who recommended to discontinue antibiotics. Recommended discharge with Breo inhaler. Breathing has improved significantly and patient is eager to return home. Time Attestation Discharge Coordination Time (in mins): 35 Quality: Safe Use of Opioids Does Pt have an Active Cancer Diagnosis on the Problem List?: No Quality: Stroke Does the patient have a stroke diagnosis?: No Physical Exam Vital Signs: Vital Signs: Last Vital Signs Temp 97.4 F 02/20/24 07:35 Pulse 69 02/20/24 07:35 Resp 16 02/20/24 07:35 BP 162/80 H 02/20/24 07:35 Pulse Ox 98 02/20/24 07:35 O2 Del Method Room Air 02/20/24 07:35 O2 Flow Rate 2 02/17/24 19:03 BMI result Body Mass Index 35.6 Const: General: cooperative, comfortable, no acute distress, alert and awake Nutritional Appearance: overweight Orientation/consciousness: patient oriented x3 Resp: Effort & Inspection: normal respiratory effort, able to speak in complete sentences, no respiratory distress and no use of accessory muscles Cardio: Rate: regular rate GI: Inspection: No distended Palpation (GI): nontender Neuro: General: patient oriented x3, moves all extremities and CN's II-XI intact bilaterally Extrem: General: Yes no pedal edema Discharge Plan Discharge Anticipated Discharge Date/Time: 02/20/24 13:57 Patient Disposition: Home, Self-Care Discharge Diagnosis: Acute exacerbation of asthma due to rhino/enterovirus Referrals: Physician,Unknown J [Physician] - 1 Week Discharge Medications: New fluticasone furoate-vilanterol [Breo Ellipta] 100-25 mcg/dose blister with device 1 inh inhalation Q24H Qty: 60 0RF benzonatate 100 mg Capsule 100 mg PO TID PRN (Reason: Cough) Qty: 30 0RF prednisone 10 mg tablet See Taper PO DIRECTED Qty: 30 0RF Taper: Prednisone 40 mg daily for 3 Days and 0 Hour 30 mg daily for 3 Days and 0 Hour 20 mg daily for 3 Days and 0 Hour 10 mg daily for 3 Days and 0 Hour Rx Instructions: see taper instructions Continued albuterol sulfate [Ventolin HFA] 90 mcg/actuation HFA aerosol inhaler 2 puff inhalation Q4H PRN (Reason: Shortness Of Breath Or Wheezing) Dupixent Pen 300 mg/2 mL pen injector 300 mg SUBCUT Q14D Discharge Orders: Discharge Order (Routine); Ordered 02/20/24 Ordered By: Beth Chris Activity on Discharge: As tolerated Stand Alone Forms: Patient Portal Discharge page, Work/School Release Print Language: Bur[place]ian Care Plan Goals: See below Health Concerns: Respiratory failure with hypoxia Acute exacerbation of asthma Entero/rhino virus Plan of Treatment: Complete prednisone taper as prescribed Recommend to start using Breo inhaler as recommended by advanced practice nurse Call to schedule outpatient follow-up with PCP Return with any worsening symptoms Assessment: See discharge summary Discharge Date/Time: 02/20/24 15:57
--- NOTE | 2024-02-20 14:23 | MHC.CM.PN ---
Patient discharged to home self care.She has arranged for transportation home.
[2024-02-20 15:08] VITALS: PULSE 78; RESP 18; O2SAT 95
== END 2024-02-20 15:57 | disposition home or self-care (01) | DRG 141 ==
LOC: HO.ED 21:33 → HO.EDOVER 02-16 00:44 → HO.S3 02-16 16:19
PROVIDERS: Hospitalist; Internal Medicine; Internal Medicine Pulmonary Disease; Admitting Provider Student in an Organized Health Care Education/Training Program; Emergency Provider Internal Medicine; PCP Internal Medicine; Visit Provider Physician Assistant Medical
DX: J45.51 Severe persistent asthma with (acute) exacerbation (principal); E66.812 Obesity, class 2; L30.9 Dermatitis, unspecified; R06.03 Acute respiratory distress; Z71.3 Dietary counseling and surveillance; Z68.35 Body mass index [BMI] 35.0-35.9, adult; Z20.822 Contact with and (suspected) exposure to COVID-19; Z79.620 Long term (current) use of immunosuppressive biologic; Z79.899 Other long term (current) drug therapy
CPT/HCPCS: 0241U; 36415; 36600; 70450; 71046; 80048; 80076; 80307; 82803; 84484; 84702; 85025; 85027; 85379; 87633; 93005; 94640; 99285; J1100; J2060; J2405; J2919; J3475

== ENCOUNTER → 2024-02-16 00:38 | Outpatient (BNV) | payer OTHER, SELFPAY | PROVIDERS: Admitting Provider Student in an Organized Health Care Education/Training Program; Emergency Provider Internal Medicine; Visit Provider Internal Medicine Pulmonary Disease | DX: J45.51 Severe persistent asthma with (acute) exacerbation (principal) | CPT/HCPCS: 99222 ==

== ENCOUNTER → 2024-02-16 00:38 | Outpatient (BNV) | payer OTHER, SELFPAY | PROVIDERS: Admitting Provider Student in an Organized Health Care Education/Training Program; Emergency Provider Internal Medicine; Visit Provider Student in an Organized Health Care Education/Training Program | DX: J45.51 Severe persistent asthma with (acute) exacerbation (principal) | CPT/HCPCS: 99232; 99233; 99239 ==

== ENCOUNTER 2024-03-24 21:26 | Emergency (ER) | payer OTHER, SELFPAY ==
[2024-03-24 21:30] VITALS: BMI 37.7
[2024-03-24 21:33] VITALS: BP 111/61; PULSE 76; RESP 17; TEMP 37; O2SAT 98
--- NOTE | 2024-03-24 21:56 | ED.ALLEREA ---
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 noticed hives all over the body, face for last 4 days patient is on Dupixent every 2 weeks no shortness of breath Related Data Home Medications ?Medication ?Instructions ?Recorded ?Confirmed albuterol sulfate 90 mcg/actuation 2 puff inhalation Q4H PRN 02/16/24 02/16/24 aerosol inhaler (Ventolin HFA) Shortness Of Breath Or Wheezing dupilumab 300 mg/2 mL subcutaneous 300 mg subcut Q14D 02/16/24 02/16/24 pen injector (Dupixent) Previous Rx's ?Medication ?Instructions ?Recorded benzonatate 100 mg capsule 100 mg PO TID PRN Cough #30 caps 02/20/24 fluticasone furoate 100 1 inh inhalation Q24H #60 ea 02/20/24 mcg-vilanterol 25 mcg/dose inhalation powder (Breo Ellipta) prednisone 10 mg tablet See Taper PO DIRECTED #30 tabs 02/20/24 prednisone 20 mg tablet 40 mg (2 x 20 mg) PO DAILY #10 tabs 03/24/24 Allergies Allergy/AdvReac Type Severity Reaction Status Date / Time propylene glycol Allergy Severe Anaphylaxis Verified 03/24/24 21:33 Review of Systems Review of Systems: Yes all other systems are reviewed and are negative PMFSH Past Medical History Medical History Asthma Social History Social History Household Members: Children and Friend(s) Housing: Condominium Do you presently have visiting nurse or other home services: No Patient Tobacco Use Status: Never used Tobacco Substance Use Type: Marijuana Advance Directives: No Advance Directives Information Provided: No Do you have a plan to hurt others: No Plan service: No Physical Exam ED Vital Signs: Vital Signs - 24 hr 03/24/24 21:33 03/24/24 22:20 03/24/24 23:42 Temperature 98.6 F 98.6 F Pulse Rate 76 61 61 Respiratory Rate 17 16 Blood Pressure 111/61 111/67 111/67 Pulse Oximetry 98 98 Oxygen Delivery Method Room Air Room Air BMI result Body Mass Index 37.7 Appearance: Alert. Oriented X3. No acute distress. Eyes: Hives over the face especially right eye ENT: Pharynx normal. Oral Mucosa moist uvula normal lips normal Neck: Normal inspection. Neck supple. CVS: Normal heart rate and rhythm. Pulses normal. Respiratory: No respiratory distress. Equal air entry bilateral, no wheezing/rales/rhonchi Abdomen: Soft and nontender. Bowel sounds are present, Skin: Skin warm and dry. Hives over the upper extremities in the face Extremities: No lower extremity edema. No calf tenderness Neuro: Oriented X 3. Medications Administered Discontinued Medications Generic Name Dose Route Start Last Admin Trade Name Freq PRN Reason Stop Dose Admin Epinephrine 0.3 mg 03/24/24 21:46 03/24/24 22:20 Epinephrine 1 Mg/Ml Vial IM 03/24/24 21:47 0.3 mg STAT STA Administration Famotidine 20 mg 03/24/24 21:46 03/24/24 22:19 Famotidine/Pf 20 Mg/2 Ml Vial IVPUSH 03/24/24 21:47 20 mg ONCE ONE Administration Methylprednisolone Sodium Succinate 125 mg 03/24/24 21:46 03/24/24 22:19 Methylprednisolone Sod Succ 125 Mg/2 Ml Vial IVPUSH 03/24/24 21:47 125 mg ONCE ONE Administration Discharge Plan Discharge Clinical Impression: Allergic reaction Patient Disposition: Home, Self-Care Instructions: General Allergic Reaction (ED) Additional Instructions: Continue take your medication follow up with your PCP Prednisone as prescribed Prescriptions: New prednisone 20 mg tablet 40 mg PO DAILY Qty: 10 0RF No Action albuterol sulfate [Ventolin HFA] 90 mcg/actuation HFA aerosol inhaler 2 puff inhalation Q4H PRN (Reason: Shortness Of Breath Or Wheezing) Dupixent Pen 300 mg/2 mL pen injector 300 mg SUBCUT Q14D fluticasone furoate-vilanterol [Breo Ellipta] 100-25 mcg/dose blister with device 1 inh inhalation Q24H Qty: 60 0RF benzonatate 100 mg Capsule 100 mg PO TID PRN (Reason: Cough) Qty: 30 0RF prednisone 10 mg tablet See Taper PO DIRECTED Qty: 30 0RF Taper: Prednisone 40 mg daily for 3 Days and 0 Hour 30 mg daily for 3 Days and 0 Hour 20 mg daily for 3 Days and 0 Hour 10 mg daily for 3 Days and 0 Hour Rx Instructions: see taper instructions Interventions: ED Discharge Assessment Last Done: 03/24/24 23:42 Discharge Date/Time: 03/24/24 23:43 Print Language: Occitan
[2024-03-24] MEDS: Famotidine/PF 20 MG/2 ML VIAL IVPUSH (22:19)
[2024-03-24] MEDS: methylPREDNISolone Sod Succ 125 MG/2 ML VIAL IVPUSH (22:19)
[2024-03-24 22:20] VITALS: BP 111/67; PULSE 61
[2024-03-24] MEDS: EPINEPHrine 1 MG/ML VIAL 0.3 MG IM (22:20)
--- NOTE | 2024-03-24 23:08 | PC.NURSE ---
report to Priscilla OLIVEIRA
--- NOTE | 2024-03-24 23:40 | PC.NURSE ---
Took over care from Sascha Harding at 23:00, reviewed discharge instructions with pt. pt verbalized understanding, no sob or respiratory distress. upon discharge pt had a steady gait.
[2024-03-24 23:42] VITALS: BP 111/67; PULSE 61; RESP 16; TEMP 37; O2SAT 98
== END 2024-03-24 23:43 | disposition home or self-care (01) ==
PROVIDERS: Emergency Provider Internal Medicine; PCP Internal Medicine
DX: L50.0 Allergic urticaria (principal); Z79.899 Other long term (current) drug therapy
CPT/HCPCS: 96372; 96374; 96375; 99284; J0171; J2919

== ENCOUNTER 2024-03-28 21:52 | Emergency (ER) | payer OTHER, SELFPAY ==
[2024-03-28 21:57] VITALS: BP 113/59; PULSE 80; RESP 18; TEMP 36.3; O2SAT 99; BMI 37.4
--- NOTE | 2024-03-28 22:06 | ED_ITS ---
HPI - Allergic Reaction General Chief complaint: Allergic Reaction Stated complaint: ?allergic reaction Time Seen by Provider: 03/28/24 22:00 Source: patient Mode of arrival: ambulatory Limitations: no limitations History of Present Illness ED Provider: arnol mistry np HPI narrative: Patient is a 29-year-old female who presents emergency department for evaluation, expressing concern for recurrent allergic reaction, cause on identifiable. Reports Over the past couple days she has been experiencing significant exacerbation of her eczema to the flexural surfaces of the bilateral antecubital region. About 30 minutes prior to arrival to the ED, she was at work without any known exposure and developed acute onset of shortness of breath, difficulty breathing, and hives. She takes Dupixent every 2 weeks, she is awaiting repeat allergy testing which is scheduled for April of 2024. Related Data Home Medications ?Medication ?Instructions ?Recorded ?Confirmed albuterol sulfate 90 mcg/actuation 2 puff inhalation Q4H PRN 02/16/24 02/16/24 aerosol inhaler (Ventolin HFA) Shortness Of Breath Or Wheezing dupilumab 300 mg/2 mL subcutaneous 300 mg subcut Q14D 02/16/24 02/16/24 pen injector (Dupixent) Previous Rx's ?Medication ?Instructions ?Recorded benzonatate 100 mg capsule 100 mg PO TID PRN Cough #30 caps 02/20/24 fluticasone furoate 100 1 inh inhalation Q24H #60 ea 02/20/24 mcg-vilanterol 25 mcg/dose inhalation powder (Breo Ellipta) prednisone 10 mg tablet See Taper PO DIRECTED #30 tabs 02/20/24 prednisone 20 mg tablet 40 mg (2 x 20 mg) PO DAILY #10 tabs 03/24/24 prednisone 20 mg tablet 40 mg (2 x 20 mg) PO DAILY 5 days 03/29/24 #10 tabs Allergies Allergy/AdvReac Type Severity Reaction Status Date / Time propylene glycol Allergy Severe Anaphylaxis Verified 03/28/24 21:59 Review of Systems Review of Systems: Yes all other systems are reviewed and are negative PMFSH Past Medical History Attestation statement: The following information was validated with the patient. Source: old records reviewed Medical History Asthma Social History Social History Household Members: Children and Friend(s) [facility] Do you presently have visiting nurse or other home services: No Patient Tobacco Use Status: Never used Tobacco Smoked in Last 30 Days: No Use of substances other than those prescribed or required for medical reasons: No Substance Use Type: Marijuana Advance Directives: Yes Advance Directives on File: Yes Advance Directives Date on File: 02/22/24 Do you have a plan to hurt others: No Plan Patient : No service: No Physical Exam ED Vital Signs: Vital Signs - 24 hr 03/28/24 21:57 03/28/24 22:41 03/29/24 00:11 Temperature 97.4 F Pulse Rate 80 90 81 Respiratory Rate 18 24 H Blood Pressure 113/59 L 113/59 L 127/65 Pulse Oximetry 99 97 Oxygen Delivery Method Room Air Room Air 03/29/24 00:59 Temperature 97.4 F Pulse Rate 90 Respiratory Rate 18 Blood Pressure 135/73 Pulse Oximetry 99 Oxygen Delivery Method Room Air BMI result Body Mass Index 37.4 Appearance: Alert.?Oriented to person, place and time. No acute distress.?Normal affect. Eyes: Pupils equal, round and reactive to light.? No periorbital swelling. ENT: Pharynx mildly erythematous without hypertrophy. Uvula midline. Has mild erythema of the circumoral region. No angioedema of the tongue/face. Neck: Normal inspection.? Neck supple.??No adenopathy CVS: Heart sounds normal. Normal heart rate and rhythm.? Pulses normal.?? Respiratory: No respiratory distress.? Lung sounds are tight with expiratory wheezing Abdomen: Soft and non-tender. Normoactive bowel sounds. Skin: Skin warm and dry.? Normal skin color.? Diffuse urticaria Extremities: No lower extremity edema.? No calf ttp? Neuro: Moves all extremities spontaneously. Sensation intact bilaterally. No focal neuro deficits. Ambulates with normal steady gait. Course Reevaluation(s) Reevaluation #1: She reports significant improvement in her symptoms. Resolution of hives. No facial erythema. Pharynx is normal. No itchiness to the throat. Vital signs are stable. 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 Strict return precautions. All questions answered. Time: 00:55 Medications Administered Discontinued Medications Generic Name Dose Route Start Last Admin Trade Name Freq PRN Reason Stop Dose Admin Albuterol Sulfate 5 mg 03/28/24 22:04 03/28/24 22:23 Albuterol Sulfate (0.083%) 2.5 Mg/3 Ml Vial.Neb INHALE 03/28/24 22:05 5 mg ONCE ONE Administration Epinephrine 0.3 mg 03/28/24 22:04 03/28/24 22:41 Epinephrine 1 Mg/Ml Vial IM 03/28/24 22:05 0.3 mg STAT STA Administration Famotidine 20 mg 03/28/24 22:04 03/28/24 22:41 Famotidine/Pf 20 Mg/2 Ml Vial IVPUSH 03/28/24 22:05 20 mg ONCE ONE Administration Methylprednisolone Sodium Succinate 125 mg 03/28/24 22:04 03/28/24 22:41 Methylprednisolone Sod Succ 125 Mg/2 Ml Vial IVPUSH 03/28/24 22:05 125 mg ONCE ONE Administration Medical Decision Making Medical Decision Making MDM Narrative: Patient is a 29-year-old female past medical history of asthma, atopic dermatitis he reports a history of ?being allergic to everything? awaiting repeat outpatient allergy testing presents emergency department for evaluation with concern of an allergic reaction as per HPI. Over the past couple days she has been experiencing significant exacerbation of her eczema to the flexural surfaces of the bilateral antecubital region. About 30 minutes prior to arrival to the ED, she was at work without any known exposure and developed acute onset of shortness of breath, difficulty breathing, and hives. She was seen in the emergency department 03/24/2024 similarly, received medications with improvement and was discharged on a prednisone burst. She arrives today with notable increased work of breathing, diffuse hives, mild erythema to the circumoral region without overt edema, no swelling of the posterior or pharynx she does have an itchy sensation to the throat, no stridor, no hypoxia, no tachypnea. Vital signs currently stable without hypotension tachycardia she is alert and oriented x3. Given her allergies to public glycol involvement in some medications for treat with epi IM, Pepcid IV, and Solu- Medrol IV. Differential Diagnosis Differential Diagnoses: The differential diagnosis associated with the presentation includes Differential concerning for Allergic reaction/urticaria, anaphylaxis, angioedema, anxiety, asthma exacerbation, atopic dermatitis Admission/Observation Consideration of admission/observation: Escalation of care including admission/observation considered Critical Care Time Critical Care Time Critical Care Time: Yes Total Critical Care Time: 40 Attestation: I personally attest to this critical care time spent taking care of the patient exclusive of all other billable procedures was approximately 40 minutes including initial evaluation of patient, management of acute allergic reaction, epi IM, documentation, re-evaluation. Discharge Plan Discharge Clinical Impression: Allergic reaction Patient Disposition: Home, Self-Care Instructions: Allergy Testing (ED) Prescriptions: New prednisone 20 mg tablet 40 mg PO DAILY 5 Days Qty: 10 0RF No Action albuterol sulfate [Ventolin HFA] 90 mcg/actuation HFA aerosol inhaler 2 puff inhalation Q4H PRN (Reason: Shortness Of Breath Or Wheezing) Dupixent Pen 300 mg/2 mL pen injector 300 mg SUBCUT Q14D fluticasone furoate-vilanterol [Breo Ellipta] 100-25 mcg/dose blister with device 1 inh inhalation Q24H Qty: 60 0RF benzonatate 100 mg Capsule 100 mg PO TID PRN (Reason: Cough) Qty: 30 0RF prednisone 10 mg tablet See Taper PO DIRECTED Qty: 30 0RF Taper: Prednisone 40 mg daily for 3 Days and 0 Hour 30 mg daily for 3 Days and 0 Hour 20 mg daily for 3 Days and 0 Hour 10 mg daily for 3 Days and 0 Hour Rx Instructions: see taper instructions prednisone 20 mg tablet 40 mg PO DAILY Qty: 10 0RF Interventions: ED Discharge Assessment Last Done: 03/29/24 00:59 Discharge Date/Time: 03/29/24 01:00 Print Language: Yi
[2024-03-28] MEDS: Albuterol Sulfate (0.083%) 2.5 MG/3 ML VIAL.NEB 5 MG INHALE (22:23)
[2024-03-28 22:41] VITALS: BP 113/59; PULSE 90
[2024-03-28] MEDS: methylPREDNISolone Sod Succ 125 MG/2 ML VIAL IVPUSH (22:41)
[2024-03-28] MEDS: Famotidine/PF 20 MG/2 ML VIAL IVPUSH (22:41)
[2024-03-28] MEDS: EPINEPHrine 1 MG/ML VIAL 0.3 MG IM (22:41)
[2024-03-29 00:11] VITALS: BP 127/65; PULSE 81; RESP 24; O2SAT 97
[2024-03-29 00:59] VITALS: BP 135/73; PULSE 90; RESP 18; TEMP 36.3; O2SAT 99
== END 2024-03-29 01:00 | disposition home or self-care (01) ==
PROVIDERS: Emergency Provider Emergency Medicine
DX: L50.0 Allergic urticaria (principal)
CPT/HCPCS: 96372; 96374; 96375; 99284; J0171; J2919

== ENCOUNTER 2024-04-02 22:44 | Emergency (ER) | payer OTHER, SELFPAY ==
[2024-04-02 22:46] VITALS: BP 127/79; PULSE 87; RESP 20; TEMP 36.6; O2SAT 97; BMI 33.7
--- NOTE | 2024-04-02 22:51 | ED.ALLEREA ---
HPI - Allergic Reaction General Chief complaint: Allergic Reaction Stated complaint: Allergic Rhinitis Time Seen by Provider: 04/02/24 22:50 Source: patient Mode of arrival: wheelchair Limitations: no limitations History of Present Illness ED Provider: Dr. Viky Burger HPI narrative: Patient comes to the emergency room complaining of an allergic reaction. Patient was working here at [employer]. Patient states that she has had multiple allergic reactions to unknown substance. 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 However, patient was not exposed to either want to her knowledge and still having allergic reactions. Patient complaining of increased work of breathing and also complaining of a rash. Related Data Home Medications ?Medication ?Instructions ?Recorded ?Confirmed albuterol sulfate 90 mcg/actuation 2 puff inhalation Q4H PRN 02/16/24 02/16/24 aerosol inhaler (Ventolin HFA) Shortness Of Breath Or Wheezing dupilumab 300 mg/2 mL subcutaneous 300 mg subcut Q14D 02/16/24 02/16/24 pen injector ([email or web address]) Previous Rx's ?Medication ?Instructions ?Recorded benzonatate 100 mg capsule 100 mg PO TID PRN Cough #30 caps 02/20/24 fluticasone furoate 100 1 inh inhalation Q24H #60 ea 02/20/24 mcg-vilanterol 25 mcg/dose inhalation powder (Breo Ellipta) prednisone 10 mg tablet See Taper PO DIRECTED #30 tabs 02/20/24 prednisone 20 mg tablet 40 mg (2 x 20 mg) PO DAILY #10 tabs 03/24/24 prednisone 20 mg tablet 40 mg (2 x 20 mg) PO DAILY 5 days 03/29/24 #10 tabs epinephrine 0.3 mg/0.3 mL 0.3 mg (0.3 mL) IM Q10M PRN 04/03/24 injection, auto-injector (EpiPen anaphylaxis #2 ea 2-Trae) Allergies Allergy/AdvReac Type Severity Reaction Status Date / Time propylene glycol Allergy Severe Anaphylaxis Verified 03/28/24 21:59 diphenhydramine Allergy Anaphylaxis Verified 04/02/24 23:07 [From Benadryl] nickel Allergy Difficulty Verified 04/02/24 22:48 Breathing Review of Systems Review of Systems: Constitutional : No Weight loss, No Fever, No Chills, No Night Sweats, No Fatigue, No Malaise ENT/Mouth : No Hearing loss, No Ear Pain, No Nasal Congestion, No Sinus Pain, No Hoarseness, No sore throat, No Rhinorrhea, No Swallowing Difficulty Eyes: No Eye Pain, No Swelling, No Redness, No Foreign Body, No Discharge, No Vision Changes Cardiovascular : No Chest Pain, c no dyspnea on exertion, no palpitations no lower extremity edema Respiratory : No Cough, No Sputum, complaining of mild shortness of breath Gastrointestinal : No Nausea, No Vomiting, No Diarrhea, No Constipation, No abdominal Pain, No Hematochezia, No Melena Genitourinary : no irregular bleeding, No Dysuria, No Urinary Frequency, No Hematuria, No Urinary Incontinence, No Urgency, No Flank Pain, No Urinary Flow Changes, No Hesitancy Musculoskeletal : No joint pain, No Myalgias, No Joint Swelling Skin : Complaining of hives Neuro : No Weakness, No Numbness, No Paresthesias, No Loss of Consciousness, No Dizziness, No Headache Psych : No Anxiety/Panic, No Depression, No SI/HI/AH/VH, No Social Issues, Heme/Lymph: No Bruising, No Bleeding,No Lymphadenopathy Endocrine : No Polyuria, No Polydipsia, No Temperature Intolerance [facility] Past Medical History Medical History Asthma Social History Social History Household Members: Children and Friend(s) [facility] Do you presently have visiting nurse or other home services: No Patient Tobacco Use Status: Never used Tobacco Substance Use Type: Marijuana Advance Directives: Yes Advance Directives on File: Yes Advance Directives Date on File: 02/22/24 service: No Physical Exam ED Vital Signs: Vital Signs - 24 hr 04/02/24 22:46 04/03/24 00:53 04/03/24 02:31 Temperature 98 F 98.0 F 98.0 F Pulse Rate 87 73 73 Respiratory Rate 20 16 16 Blood Pressure 127/79 106/67 108/64 Pulse Oximetry 97 100 97 Oxygen Delivery Method Room Air Room Air Room Air BMI result Body Mass Index 33.7 Const Other: Appearance: Alert. Oriented X3. No acute distress. Eyes: Pupils equal, round and reactive to light. ENT: Pharynx normal. Neck: Normal inspection. Neck supple. No lymph nodes noted. No crepitus CVS: Normal heart rate and rhythm. Pulses normal. Normal S1 and S2 Respiratory: No respiratory distress. Breath sounds normal. No Wheezing. No rales Abdomen: Soft and nontender. No rigidity. No distention. Skin: Urticaria head-to-toe Extremities: No lower extremity edema. No Lacerations. No Rash Neuro: Oriented X 3. No motor deficit. No sensory deficit. Moving all extremities. No slurred speech. CN 2 through 12 grossly intact Psych: calm, cooperative, normal affect Course Course Course Narrative: Patient receiving IV fluids, Solu-Medrol, Benadryl and Pepcid IV. -patient's vitals stable Medications Administered Discontinued Medications Generic Name Dose Route Start Last Admin Trade Name Freq PRN Reason Stop Dose Admin Diphenhydramine HCl 50 mg 04/02/24 22:50 04/02/24 22:55 Diphenhydramine Hcl 50 Mg/Ml Vial IVPUSH 04/02/24 22:51 Not Given ONCE ONE Famotidine 20 mg 04/02/24 22:50 04/02/24 22:55 Famotidine/Pf 20 Mg/2 Ml Vial IVPUSH 04/02/24 22:51 20 mg ONCE ONE Administration Sodium Chloride 1,000 mls @ 999 mls/hr 04/02/24 22:50 04/02/24 23:06 Ns IVCONT 04/02/24 23:50 999 mls/hr .Q1H1M ONE Administration Methylprednisolone Sodium Succinate 125 mg 04/02/24 22:50 04/02/24 22:54 Methylprednisolone Sod Succ 125 Mg/2 Ml Vial IVPUSH 04/02/24 22:51 125 mg ONCE ONE Administration Medical Decision Making Medical Decision Making [facility] Narrative: Patient has hives resolved -patient was given a prescription for epinephrine pen 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 Time includes review of lab data, radiology results, discussion with consultants, and monitoring for potential decompensation. Intervention performed as documented. Discharge Plan Discharge Clinical Impression: Allergic reaction Patient Disposition: Home, Self-Care Instructions: General Allergic Reaction (ED) Additional Instructions: Please follow-up with your primary care physician tomorrow. If you have any worsening or new symptoms, please return to the emergency room or call 911 Prescriptions: New epinephrine [EpiPen 2-Trae] 0.3 mg/0.3 mL auto-injector 0.3 mg IM Q10M PRN (Reason: anaphylaxis) Qty: 2 0RF Rx Instructions: for 2 doses No Action albuterol sulfate [Ventolin HFA] 90 mcg/actuation HFA aerosol inhaler 2 puff inhalation Q4H PRN (Reason: Shortness Of Breath Or Wheezing) Dupixent Pen 300 mg/2 mL pen injector 300 mg SUBCUT Q14D fluticasone furoate-vilanterol [Breo Ellipta] 100-25 mcg/dose blister with device 1 inh inhalation Q24H Qty: 60 0RF benzonatate 100 mg Capsule 100 mg PO TID PRN (Reason: Cough) Qty: 30 0RF prednisone 10 mg tablet See Taper PO DIRECTED Qty: 30 0RF Taper: Prednisone 40 mg daily for 3 Days and 0 Hour 30 mg daily for 3 Days and 0 Hour 20 mg daily for 3 Days and 0 Hour 10 mg daily for 3 Days and 0 Hour Rx Instructions: see taper instructions prednisone 20 mg tablet 40 mg PO DAILY Qty: 10 0RF prednisone 20 mg tablet 40 mg PO DAILY 5 Days Qty: 10 0RF Print Language: Nepali
[2024-04-02] MEDS: methylPREDNISolone Sod Succ 125 MG/2 ML VIAL IVPUSH (22:54)
[2024-04-02] MEDS: Famotidine/PF 20 MG/2 ML VIAL IVPUSH (22:55)
[2024-04-02] MEDS: 0.9 % Sodium Chloride 1,000 ML 999 ML IVCONT (23:06)
[2024-04-03 00:53] VITALS: BP 106/67; PULSE 73; RESP 16; TEMP 36.7; O2SAT 100
[2024-04-03 02:31] VITALS: BP 108/64; PULSE 73; RESP 16; TEMP 36.7; O2SAT 97
[2024-04-03 03:48] VITALS: BP 108/64; PULSE 73; RESP 16; TEMP 36.7; O2SAT 97
== END 2024-04-03 03:49 | disposition home or self-care (01) ==
PROVIDERS: Emergency Provider Emergency Medicine; PCP Internal Medicine Hematology & Oncology
DX: T78.40XA Allergy, unspecified, initial encounter (principal); R21 Rash and other nonspecific skin eruption; X58.XXXA Exposure to other specified factors, initial encounter
CPT/HCPCS: 96374; 96375; 99283; 99284; J1200; J2919

== ENCOUNTER 2024-06-02 01:57 | Emergency (ER) | payer OTHER, SELFPAY ==
[2024-06-02 02:06] VITALS: BP 122/93; PULSE 73; RESP 18; TEMP 36.4; O2SAT 100; BMI 28.9
[2024-06-02 02:57] VITALS: BP 127/73; PULSE 76; RESP 18; TEMP 36.8; O2SAT 98
--- NOTE | 2024-06-02 03:20 | PC.NURSE ---
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
--- NOTE | 2024-06-02 03:39 | ED_ITS ---
HPI - General Adult General Chief complaint: Allergic Reaction Stated complaint: allergic reaction Time Seen by Provider: 06/02/24 03:28 Source: patient Limitations: no limitations History of Present Illness ED Provider: Tanisha Angeles PA-C HPI narrative: 29-year-old female with significant allergy profile, asthma and eczema presents with acute rash. Patient often reacts to many substances, while at work her a sthma became exacerbated. She is intensely itchy over upper extremities/ torso. Denies dysphagia, odynophagia, wheezing, dyspnea, angioedema. No new food, body products or medication. Related Data Home Medications ?Medication ?Instructions ?Recorded ?Confirmed albuterol sulfate 90 mcg/actuation 2 puff inhalation Q4H PRN 02/16/24 02/16/24 aerosol inhaler (Ventolin HFA) Shortness Of Breath Or Wheezing dupilumab 300 mg/2 mL subcutaneous 300 mg subcut Q14D 02/16/24 02/16/24 pen injector ([email or web address]) Previous Rx's ?Medication ?Instructions ?Recorded benzonatate 100 mg capsule 100 mg PO TID PRN Cough #30 caps 02/20/24 fluticasone furoate 100 1 inh inhalation Q24H #60 ea 02/20/24 mcg-vilanterol 25 mcg/dose inhalation powder (Breo Ellipta) prednisone 10 mg tablet See Taper PO DIRECTED #30 tabs 02/20/24 prednisone 20 mg tablet 40 mg (2 x 20 mg) PO DAILY #10 tabs 03/24/24 prednisone 20 mg tablet 40 mg (2 x 20 mg) PO DAILY 5 days 03/29/24 #10 tabs epinephrine 0.3 mg/0.3 mL 0.3 mg (0.3 mL) IM Q10M PRN 04/03/24 injection, auto-injector (EpiPen anaphylaxis #2 ea 2-Trae) famotidine 40 mg tablet 40 mg PO BID #7 tabs 06/02/24 methylprednisolone 4 mg tablets in 4 mg PO DAILY #1 ea 06/02/24 a dose pack (Medrol (Trae)) Allergies Allergy/AdvReac Type Severity Reaction Status Date / Time propylene glycol Allergy Severe Anaphylaxis Verified 06/02/24 02:07 acetaminophen [From Tylenol] Allergy Rash Verified 06/02/24 02:07 diphenhydramine Allergy Anaphylaxis Verified 06/02/24 02:07 [From Benadryl] ibuprofen Allergy Rash Verified 06/02/24 02:07 nickel Allergy Difficulty Verified 06/02/24 02:07 Breathing ondansetron [From Zofran] Allergy Anaphylaxis Verified 06/02/24 02:07 polyethylene glycol Allergy Anaphylaxis Verified 06/02/24 02:07 Review of Systems Review of Systems: Yes all other systems are reviewed and are negative Constitutional: Constitutional: Denies fatigue and Denies fever(s) ENT: Denies sore throat, Denies throat swelling and Denies tongue swelling Cardiovascular: Cardiovascular: Denies chest pain and Denies dyspnea Respiratory: Respiratory: Denies cough, Denies dyspnea and Denies wheezing Gastrointestinal: Gastrointestinal: Denies abdominal pain, Denies nausea and Denies vomiting Integumentary/Breasts: Skin/Breast: Reports pruritus, Reports erythema and Reports rash Endocrine: Endocrine: Denies fatigue Allergic/Immunologic: Allergic/Immunologic: Denies throat swelling, Denies tongue swelling and Denies wheezing PMFSH Past Medical History Attestation statement: The following information was validated with the patient. Medical History Asthma Social History Social History Household Members: Children and Friend(s) Housing: Condominium Do you presently have visiting nurse or other home services: No Patient Tobacco Use Status: Never used Tobacco Smoked in Last 30 Days: No Substance Use Type: Marijuana Advance Directives: Yes Advance Directives on File: Yes Advance Directives Date on File: 02/22/24 service: No Physical Exam ED Vital Signs: Vital Signs - 24 hr 06/02/24 02:06 06/02/24 02:57 Temperature 97.6 F 98.3 F Pulse Rate 73 76 Respiratory Rate 18 18 Blood Pressure 122/93 H 127/73 Pulse Oximetry 100 98 Oxygen Delivery Method Room Air BMI result Body Mass Index 28.9 Const Other: Alert Orientation/consciousness: patient oriented x3 HENMT Other: No angioedema Resp Effort & Inspection: normal respiratory effort Cardio Other: Normal peripheral perfusion Skin Other: Diffuse eczema noted over bilateral upper extremities torso some on the face, no urticaria noted Neuro General: patient oriented x3, no focal motor deficits and CN's II-XI intact bilaterally Psych Other: Calm cooperative Medical Decision Making Medical Decision Making MDM Narrative: 29-year-old female with significant allergy profile, asthma and eczema presents with acute rash. Patient often reacts to many substances, while at work her asthma became exacerbated. She is intensely itchy over upper extremities/ torso. Denies dysphagia, odynophagia, wheezing, dyspnea, angioedema. No new food, body products or medication. Problem: Atopic next History: Per patient I have considered the following differential diagnoses: Allergic reaction, anaphylaxis, eczema, contact dermatitis Plan: The patient has eczema has been exacerbated, she states she reacts to numerous products, she has extensive allergies and can not take most antihistamines. She can take famotidine, she can take steroid. We will place on a steroid taper and send with the famotidine. To note she has no angioedema, she is hemodynamically stable there was nothing to suggest anaphylaxis, the rash is not urticarial. Discharge Plan Discharge Clinical Impression: Eczema Patient Disposition: Home, Self-Care Instructions: Cold Compress or Soak (ED) Additional Instructions: Use the Medrol Dosepak as directed for your eczema flare. Use the famotidine as directed as well. Follow up with your primary care provider as needed. Prescriptions: New methylprednisolone [Medrol (Trae)] 4 mg tablets,dose pack 4 mg PO DAILY Qty: 1 0RF famotidine 40 mg tablet 40 mg PO BID Qty: 7 0RF No Action albuterol sulfate [Ventolin HFA] 90 mcg/actuation HFA aerosol inhaler 2 puff inhalation Q4H PRN (Reason: Shortness Of Breath Or Wheezing) Dupixent Pen 300 mg/2 mL pen injector 300 mg SUBCUT Q14D fluticasone furoate-vilanterol [Breo Ellipta] 100-25 mcg/dose blister with device 1 inh inhalation Q24H Qty: 60 0RF benzonatate 100 mg Capsule 100 mg PO TID PRN (Reason: Cough) Qty: 30 0RF prednisone 10 mg tablet See Taper PO DIRECTED Qty: 30 0RF Taper: Prednisone 40 mg daily for 3 Days and 0 Hour 30 mg daily for 3 Days and 0 Hour 20 mg daily for 3 Days and 0 Hour 10 mg daily for 3 Days and 0 Hour Rx Instructions: see taper instructions prednisone 20 mg tablet 40 mg PO DAILY Qty: 10 0RF prednisone 20 mg tablet 40 mg PO DAILY 5 Days Qty: 10 0RF epinephrine [EpiPen 2-Trae] 0.3 mg/0.3 mL auto-injector 0.3 mg IM Q10M PRN (Reason: anaphylaxis) Qty: 2 0RF Rx Instructions: for 2 doses Print Language: Uzbek
[2024-06-02] MEDS: methylPREDNISolone 4 MG TABLET 8 MG PO (03:54)
[2024-06-02] MEDS: Famotidine 20 MG TABLET PO (03:54)
[2024-06-02 03:58] VITALS: BP 127/73; PULSE 76; RESP 18; TEMP 36.8; O2SAT 98
== END 2024-06-02 04:02 | disposition home or self-care (01) ==
PROVIDERS: Emergency Provider Emergency Medicine Emergency Medical Services; PCP Internal Medicine
DX: L23.9 Allergic contact dermatitis, unspecified cause (principal); J45.909 Unspecified asthma, uncomplicated; Z79.899 Other long term (current) drug therapy
CPT/HCPCS: 99283; 99284

== ENCOUNTER 2024-06-15 04:50 | Emergency (ER) | payer OTHER, SELFPAY ==
[2024-06-15] VITALS (8 sets, daily range): BP systolic 107–135; BP diastolic 51–74; PULSE 68–103; RESP 16–22; TEMP -17.7–36.7; O2SAT 99–100; BMI 30.7
--- NOTE | 2024-06-15 05:00 | ED.GENADULT ---
HPI - General Adult General Chief complaint: Allergic Reaction Stated complaint: SoB, allergic reaction Time Seen by Provider: 06/15/24 04:57 History of Present Illness ED Provider: Glenn JUDGE narrative: The patient is a 29-year-old female who has a history of asthma. She also has a history of multiple allergies and fairly frequent allergic reactions. 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 She had just finished her shift when she started to feel herself breaking out in an itchy rash and feeling short of breath in a manner consistent with previous allergic reactions. She feels that she has hives on her trunk and that her breathing is tight. She says she does not know what might have triggered an allergy tonight. She says that it is often confusing as to what triggers her allergies. She gets her allergy care through [facility]. Related Data Home Medications ?Medication ?Instructions ?Recorded ?Confirmed albuterol sulfate 90 mcg/actuation 2 puff inhalation Q4H PRN 02/16/24 02/16/24 aerosol inhaler (Ventolin HFA) Shortness Of Breath Or Wheezing dupilumab 300 mg/2 mL subcutaneous 300 mg subcut Q14D 02/16/24 02/16/24 pen injector ([employer]) Previous Rx's ?Medication ?Instructions ?Recorded benzonatate 100 mg capsule 100 mg PO TID PRN Cough #30 caps 02/20/24 fluticasone furoate 100 1 inh inhalation Q24H #60 ea 02/20/24 mcg-vilanterol 25 mcg/dose inhalation powder (Breo Ellipta) prednisone 10 mg tablet See Taper PO DIRECTED #30 tabs 02/20/24 prednisone 20 mg tablet 40 mg (2 x 20 mg) PO DAILY #10 tabs 03/24/24 prednisone 20 mg tablet 40 mg (2 x 20 mg) PO DAILY 5 days 03/29/24 #10 tabs epinephrine 0.3 mg/0.3 mL 0.3 mg (0.3 mL) IM Q10M PRN 04/03/24 injection, auto-injector (EpiPen anaphylaxis #2 ea 2-Trae) famotidine 40 mg tablet 40 mg PO BID #7 tabs 06/02/24 methylprednisolone 4 mg tablets in 4 mg PO DAILY #1 ea 06/02/24 a dose pack (Medrol (Trae)) loratadine 10 mg tablet 10 mg PO DAILY PRN allergic 06/15/24 symptoms #20 tabs Allergies Allergy/AdvReac Type Severity Reaction Status Date / Time propylene glycol Allergy Severe Anaphylaxis Verified 06/15/24 05:07 acetaminophen [From Tylenol] Allergy Rash Verified 06/15/24 05:07 diphenhydramine Allergy Anaphylaxis Verified 06/15/24 05:07 [From Benadryl] ibuprofen Allergy Rash Verified 06/15/24 05:07 nickel Allergy Difficulty Verified 06/15/24 05:07 Breathing ondansetron [From Zofran] Allergy Anaphylaxis Verified 06/15/24 05:07 polyethylene glycol Allergy Anaphylaxis Verified 06/15/24 05:07 Review of Systems Review of Systems: Yes all other systems are reviewed and are negative PMFSH Past Medical History Medical History Asthma Social History Social History Household Members: Children and Friend(s) Housing: Condominium Do you presently have visiting nurse or other home services: No Patient Tobacco Use Status: Never used Tobacco Substance Use Type: Marijuana Advance Directives: Yes Advance Directives on File: Yes Advance Directives Date on File: 02/22/24 Do you have a plan to hurt others: No Plan Patient : No service: No Physical Exam ED Vital Signs: Vital Signs - 24 hr 06/15/24 05:00 06/15/24 05:05 06/15/24 05:10 Temperature 97.2 F Pulse Rate 84 68 74 Respiratory Rate 20 22 H Blood Pressure 135/74 135/74 Pulse Oximetry 100 Oxygen Delivery Method Room Air 06/15/24 07:23 06/15/24 07:44 06/15/24 07:58 Temperature 98.0 F Pulse Rate 103 H 89 87 Respiratory Rate 18 16 16 Blood Pressure 107/54 L 116/67 125/51 L Pulse Oximetry 99 Oxygen Delivery Method Room Air 06/15/24 08:24 06/15/24 08:54 Temperature 0 F L Pulse Rate 80 80 Respiratory Rate 16 16 Blood Pressure 121/65 121/65 Pulse Oximetry 100 100 Oxygen Delivery Method Room Air Room Air BMI result Body Mass Index 30.7 Const Other: The patient is awake, alert, pleasant, cooperative. The patient looks mildly short of breath HENMT Other: Face is symmetrical. Mucous membranes are moist. The posterior pharynx is normal. Eyes General: appearance normal, both eyes and all related structures Neck Other: No stridor Resp Other: Slight bilateral wheezes. No increased work of breathing Cardio Rate: regular rate Rhythm: regular rhythm Heart sounds: S1 normal heart sound present and S2 normal heart sound present GI Other: Abdomen is soft and nontender Skin Other: The patient has hives on the torso Neuro Other: The patient is awake and alert with a normal mental status Extrem Other: No peripheral edema Medications Administered Discontinued Medications Generic Name Dose Route Start Last Admin Trade Name Freq PRN Reason Stop Dose Admin Albuterol Sulfate 5 mg 06/15/24 05:00 06/15/24 05:04 Albuterol Sulfate (0.083%) 2.5 Mg/3 Ml Vial.Neb INHALE 06/15/24 05:01 5 mg ONCE ONE Administration Epinephrine 0.3 mg 06/15/24 05:00 06/15/24 05:10 Epinephrine 1 Mg/Ml Vial IM 06/15/24 05:01 0.3 mg STAT STA Administration Loratadine 10 mg 06/15/24 06:39 06/15/24 07:24 Loratadine 10 Mg Tablet PO 06/15/24 06:40 10 mg ONCE ONE Administration Prednisone 60 mg 06/15/24 05:00 06/15/24 05:11 Prednisone 20 Mg Tablet PO 06/15/24 05:01 60 mg ONCE ONE Administration Medical Decision Making Medical Decision Making MDM Narrative: The patient reports a history of frequent allergic episodes, often with unclear triggers. 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 She developed hives and shortness of breath typical of her allergic reactions at the end of her shift. Rather than administer her own EpiPen she came to the emergency department. Here she was given an EpiPen, 60 mg of prednisone, and an albuterol nebulizer treatment. She says she is allergic to diphenhydramine. She also says that she is allergic to propylene glycol which is in famotidine. The patient received these medications and was observed. Her symptoms improved although she remained quite itchy. She was given a dose of loratadine. Ultimately she seemed to feel well enough for discharge. She was given a work note. 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 Discharge Plan Discharge Clinical Impression: Allergic reaction Patient Disposition: Home, Self-Care Additional Instructions: Please rest and take it easy today. I have sent a prescription for loratadine, a nonsedating antihistamine that may be helpful for itching. You may use this on an as-needed basis. Please contact your allergy doctor at [facility] to discuss this episode and arrange follow up. Continued to do your best to avoid allergens and also make sure you always have an EpiPen Handy. Return to the emergency room if you feel significantly worse. Prescriptions: New loratadine 10 mg tablet 10 mg PO DAILY PRN (Reason: allergic symptoms) Qty: 20 0RF No Action albuterol sulfate [Ventolin HFA] 90 mcg/actuation HFA aerosol inhaler 2 puff inhalation Q4H PRN (Reason: Shortness Of Breath Or Wheezing) Dupixent Pen 300 mg/2 mL pen injector 300 mg SUBCUT Q14D fluticasone furoate-vilanterol [Breo Ellipta] 100-25 mcg/dose blister with device 1 inh inhalation Q24H Qty: 60 0RF benzonatate 100 mg Capsule 100 mg PO TID PRN (Reason: Cough) Qty: 30 0RF prednisone 10 mg tablet See Taper PO DIRECTED Qty: 30 0RF Taper: Prednisone 40 mg daily for 3 Days and 0 Hour 30 mg daily for 3 Days and 0 Hour 20 mg daily for 3 Days and 0 Hour 10 mg daily for 3 Days and 0 Hour Rx Instructions: see taper instructions prednisone 20 mg tablet 40 mg PO DAILY Qty: 10 0RF prednisone 20 mg tablet 40 mg PO DAILY 5 Days Qty: 10 0RF epinephrine [EpiPen 2-Trae] 0.3 mg/0.3 mL auto-injector 0.3 mg IM Q10M PRN (Reason: anaphylaxis) Qty: 2 0RF Rx Instructions: for 2 doses methylprednisolone [Medrol (Trae)] 4 mg tablets,dose pack 4 mg PO DAILY Qty: 1 0RF famotidine 40 mg tablet 40 mg PO BID Qty: 7 0RF Referrals: Jose J Alba DO [Physician] - (allergic reaction) Karthik Reeves MD [Primary Care Provider] - Stand Alone Forms: Work/School Release Interventions: ED Discharge Assessment Last Done: 06/15/24 08:54 Discharge Date/Time: 06/15/24 08:55 Print Language: Kyrgyz
[2024-06-15] MEDS: Albuterol Sulfate (0.083%) 2.5 MG/3 ML VIAL.NEB 5 MG INHALE (05:04)
[2024-06-15] MEDS: EPINEPHrine 1 MG/ML VIAL 0.3 MG IM (05:10)
[2024-06-15] MEDS: predniSONE 20 MG TABLET 60 MG PO (05:11)
--- NOTE | 2024-06-15 05:39 | PC.NURSE ---
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 Pt was working at the time the symptoms started. Similar episodes in the past with multiple ED visits. Is under the care of [facility], but triggers have not been identified, cause is unknown. Symptoms improved after medications and skin condition has returned to normal. Work of breathing is decreased. Able to speak in complete sentences now.
[2024-06-15] MEDS: Loratadine 10 MG TABLET PO (07:24)
--- NOTE | 2024-06-15 07:58 | PC.NURSE ---
Pt up for d/c. Paperwork signed and given. Pt then reports feeling lightheaded and feels unable to drive. ED provider aware and advised to give PO fluids. BPs stable at this time; Will continue to monitor BP.
== END 2024-06-15 08:55 | disposition home or self-care (01) ==
PROVIDERS: Emergency Provider Emergency Medicine; PCP Internal Medicine
DX: L50.0 Allergic urticaria (principal); R06.02 Shortness of breath; Z79.899 Other long term (current) drug therapy
CPT/HCPCS: 94640; 96372; 99284; J0171

== ENCOUNTER 2024-11-13 22:50 | Emergency (ER) | payer OTHER, SELFPAY ==
--- NOTE | ~2024-11-13 | XR_ITS ---
CLINICAL HISTORY: pain, difficulty walking 3 views lumbar spine Comparison: None provided Findings: Mild retrolisthesis of the L4-L5. L4 and L5 pars are partly obscured without definite lysis by radiographs. Disc height loss of the L5-S1 is greater than expected for age. Essentially normal heights of the 5 lumbar type vertebrae. Sclerosis likely due to bone island in the imaged right iliac bone. Postprocedural opacities noted in the left upper quadrant of the imaged abdomen. Hips are essentially obscured. Sacrum and SI joints are mostly obscured. IMPRESSION: 1. Mild retrolisthesis of the L4-L5. 2. No acute compression fracture of the 5 lumbar type vertebrae. This document has been electronically signed by: Timothy Berkowitz MD on 11/14/2024 01:16:04
[2024-11-13 23:04] VITALS: BP 106/70; PULSE 66; RESP 16; TEMP 36.6; O2SAT 99; BMI 24.6
--- NOTE | 2024-11-14 01:23 | PC.NURSE ---
Provider into assess and discuss plan of care.
[2024-11-14] MEDS: diazePAM 5 MG TABLET PO (01:36)
--- NOTE | 2024-11-14 01:46 | PC.NURSE ---
medicated per mar
--- NOTE | 2024-11-14 01:50 | ED_ITS ---
HPI - General Adult General Chief complaint: Back Pain/Injury Stated complaint: back pain- Time Seen by Provider: 11/14/24 00:39 Source: patient Limitations: no limitations History of Present Illness ED Provider: Tanisha Angeles PA-C HPI narrative: 29-year-old female presents with low back pain. Patient states she was bending over when she developed acute onset right-sided lumbar strain. The pain is radiating into her buttock. Denies paresthesia, weakness of lower extremities, urinary retention or bowel incontinence. Related Data Home Medications ?Medication ?Instructions ?Recorded ?Confirmed albuterol sulfate 90 mcg/actuation 2 puff inhalation Q 4H PRN 02/16/24 02/16/24 aerosol inhaler (Ventolin HFA) Shortness Of Breath Or Wheezing dupilumab 300 mg/2 mL subcutaneous 300 mg subcut Q14D 02/16/24 02/16/24 pen injector ([employer]) Previous Rx's ?Medication ?Instructions ?Recorded benzonatate 100 mg capsule 100 mg PO TID PRN Cough #30 caps 02/20/24 fluticasone furoate 100 1 inh inhalation Q24H #60 ea 02/20/24 mcg-vilanterol 25 mcg/dose inhalation powder (Breo Ellipta) prednisone 10 mg tablet See Taper PO DIRECTED #30 tabs 02/20/24 prednisone 20 mg tablet 40 mg (2 x 20 mg) PO DAILY # 10 tabs 03/24/24 prednisone 20 mg tablet 40 mg (2 x 20 mg) PO DAILY 5 days 03/29/24 #10 tabs epinephrine 0.3 mg/0.3 mL 0.3 mg (0.3 mL) IM Q10M PRN 04/03/24 injection, auto-injector (EpiPen anaphylaxis #2 ea 2-Trae) famotidine 40 mg tablet 40 mg PO BID #7 tabs 5 methylprednisolone 4 mg tablets in 4 mg PO DAILY #1 ea 06/02/24 a dose pack (Medrol (Trae)) loratadine 10 mg tablet 10 mg PO DAILY PRN allergic 06/15/24 symptoms #20 tabs methylprednisolone 4 mg tablets in 4 mg PO QAM #21 ea 11/14/24 a dose pack (Medrol (Rtae)) tizanidine 6 mg capsule 6 mg PO Q8H PRN muscle spast icity 11/14/24 #15 caps Allergies Allergy/AdvReac Type Severity Reaction Status Date / Time propylene glycol Allergy Severe Anaphylaxis Verified 11/13/24 23:06 acetaminophen (From Tylenol) Allergy Rash Verified 11/13/24 23:06 diphenhydramine (From Allergy Anaphylaxis Verified 11/13/24 23:06 Benadryl) ibuprofen Allergy Rash Verified 11/13/24 23:06 nickel Allergy Difficulty Verified 11/13/24 23:06 Breathing ondansetron (From Zofran) Allergy Anaphylaxis Verified 11/13/24 23:06 polyethylene glycol Allergy Anaphylaxis Verified 11/13/24 23:06 Review of Systems Review of Systems: Yes all other systems are reviewed and are negative Constitutional: Constitutional: Denies fatigue and Denies fever(s) Cardiovascular: Cardiovascular: Denies chest pain and Denies dyspnea Respiratory: Respiratory: Denies cough and Denies dyspnea Gastrointestinal: Gastrointestinal: Denies abdominal pain Musculoskeletal: Musculoskeletal: Reports back pain, Denies muscle weakness, Denies numbness, Reports radiating pain into limb and Denies tingling Neurologic: Denies numbness and Denies tingling Endocrine: Endocrine: Denies fatigue [facility] Past Medical History Attestation statement: The following information was validated with the patient. Medical History Asthma Social History Social History Household Members: Children and Friend(s) Housing: Condominium Do you presently have visiting nurse or other home services: No Patient Tobacco Use Status: Never used Tobacco Smoked in Last 30 Days: No Use of substances other than those prescribed or required for medical reasons: No Substance Use Type: Marijuana Advance Directives: Yes Advance Directives on File: Yes Advance Directives Date on File: 02/22/24 Do you have a plan to hurt others: No Plan service: No Physical Exam ED Vital Signs: Vital Signs - 24 hr 11/13/24 23:04 Temperature 97.8 F Pulse Rate 66 Respiratory Rate 16 Blood Pressure 106/70 Pulse Oximetry 99 Oxygen Delivery Method Room Air BMI result Body Mass Index 24.6 Const Other: Alert Orientation/consciousness: patient oriented x3 Resp Effort & Inspection: normal respiratory effort Cardio Other: Normal peripheral perfusion Skin Other: Warm dry no rash Neuro Other: Antalgic gait General: patient oriented x3, no focal motor deficits and CN's II-XI intact bilaterally Psych Other: Cooperative Medications Administered Discontinued Medications Generic Name Dose Route Start Last Admin Trade Name Jamey PRN Reason Stop Dose Admin Diazepam 5 mg 11/14/24 01:26 11/14/24 01:36 Diazepam 5 Mg Tablet PO 11/14/24 01:27 5 mg ONCE ONE Administration Medical Decision Making Medical Decision Making MDM Narrative: 29-year-old female presents with low back pain. Patient states she was bending over when she developed acute onset right-sided lumbar strain. The pain is radiating into her buttock. Denies paresthesia, weakness of lower extremities, urinary retention or bowel incontinence. No chronic issues History: Per patient I have considered the following differential diagnoses: Lumbar strain, lumbar radiculopathy, cauda equina, compression fracture Plan: X-ray ordered from triage, the patient is here with the acute lumbar strain, subtle radicular symptoms it does radiate to the buttock, I am still classifying this is musculoskeletal. Given her allergy profile we will send with a Medrol, and a script for tizanidine. To note she has no red flag signs symptoms concerning for cord compression I have independently reviewed the following tests: X-ray lumbar spine:IMPRESSION: 1. Mild retrolisthesis of the L4-L5. 2. No acute compression fracture of the 5 lumbar type vertebrae. Discharge Plan Discharge Clinical Impression: Retrolisthesis of vertebrae, Lumbar strain Patient Disposition: Home, Self-Care Instructions: Low Back Strain (ED), Spondylolisthesis (ED) Additional Instructions: You are being treated for lumbar strain. See home care instructions. Use the tizanidine as needed for muscle spasm and pain, this medication may cause drowsiness, do not drive or operate machinery while taking the medication. I am also placing you on a steroid taper to be used as an anti-inflammatory, started this morning. Follow up with your primary care provider as needed. Prescriptions: New methylprednisolone [Medrol (Trae)] 4 mg tablets,dose pack 4 mg PO QAM Qty: 21 0RF Rx Instructions: Take per package instructions tizanidine 6 mg capsule 6 mg PO Q8H PRN (Reason: muscle spasticity) Qty: 15 0RF No Action albuterol sulfate [Ventolin HFA] 90 mcg/actuation HFA aerosol inhaler 2 puff inhalation Q4H PRN (Reason: Shortness Of Breath Or Wheezing) Dupixent Pen 300 mg/2 mL pen injector 300 mg SUBCUT Q14D fluticasone furoate-vilanterol [Breo Ellipta] 100-25 mcg/dose blister with device 1 inh inhalation Q24H Qty: 60 0RF benzonatate 100 mg Capsule 100 mg PO TID PRN (Reason: Cough) Qty: 30 0RF prednisone 10 mg tablet See Taper PO DIRECTED Qty: 30 0RF Taper: Prednisone 40 mg daily for 3 Days and 0 Hour 30 mg daily for 3 Days and 0 Hour 20 mg daily for 3 Days and 0 Hour 10 mg daily for 3 Days and 0 Hour Rx Instructions: see taper instructions prednisone 20 mg tablet 40 mg PO DAILY Qty: 10 0RF prednisone 20 mg tablet 40 mg PO DAILY 5 Days Qty: 10 0RF epinephrine [EpiPen 2-Trae] 0.3 mg/0.3 mL auto-injector 0.3 mg IM Q10M PRN (Reason: anaphylaxis) Qty: 2 0RF Rx Instructions: for 2 doses methylprednisolone [Medrol (Trae)] 4 mg tablets,dose pack 4 mg PO DAILY Qty: 1 0RF famotidine 40 mg tablet 40 mg PO BID Qty: 7 0RF loratadine 10 mg tablet 10 mg PO DAILY PRN (Reason: allergic symptoms) Qty: 20 0RF Stand Alone Forms: Work/School Release Print Language: Mozambican
--- NOTE | 2024-11-14 02:10 | PC.NURSE ---
reviewed discharge instructions with pt, pt verbalized understanding, no sign of distress.
[2024-11-14 02:11] VITALS: BP 106/70; PULSE 66; RESP 16; TEMP 36.6; O2SAT 99
== END 2024-11-14 02:12 | disposition home or self-care (01) ==
PROVIDERS: Emergency Provider Emergency Medicine; PCP Internal Medicine
DX: M43.16 Spondylolisthesis, lumbar region (principal); R26.2 Difficulty in walking, not elsewhere classified; S39.012A Strain of muscle, fascia and tendon of lower back, initial encounter; X58.XXXA Exposure to other specified factors, initial encounter; Y93.9 Activity, unspecified; Y92.9 Unspecified place or not applicable; Y99.9 Unspecified external cause status
CPT/HCPCS: 72100; 99283; 99284

== ENCOUNTER → 2024-11-13 22:52 | Outpatient (BNV) | payer OTHER, SELFPAY | PROVIDERS: Emergency Provider Emergency Medicine; PCP Internal Medicine; Visit Provider Radiology Neuroradiology | DX: M54.50 Low back pain, unspecified (principal); R26.2 Difficulty in walking, not elsewhere classified | CPT/HCPCS: 72100 ==